=== PATIENT | female | born 1960 | race Caucasian/White ===

== ENCOUNTER → 2017-07-06 | Outpatient (CLI) | payer OTHER ==
[~2017-07-06] MED LIST: AMLO10 PO; ATEN25; CHOL10002 PO; CYCL10 PO; HYDCHL25 PO; INSULANPEN SC; KETO10 PO; LOSA50 PO; Lipitor20 MG PO; METF500C PO; MORP30 PO; MORP30ER PO; Oxycodone HCl20 M1 PO; POTCHL20ER PO; PREG75 PO; Prednisone20 MG PO; ROPI2 PO; SERT100 PO; Valium5 MG PO
[2017-07-06 16:38] LABS: BASOPHILS ABSOLUTE AUTO 0.09 K/mm3 (0.00-0.23); BASOPHILS PERCENT AUTO 1 % (0-2); EOSINOPHILS ABSOLUTE AUTO 0.15 K/mm3 (0.00-0.68); EOSINOPHILS PERCENT AUTO 2 % (0-6); Hematocrit 43.1 % (33.0-51.0); Hemoglobin 15.6 g/dL (11.5-16.0); IMMATURE GRAN ABSOLUTE AUTO 0.02 K/mm3 (0.00-0.10); IMMATURE GRAN PERCENT AUTO 0 % (0-1); LYMPHOCYTES ABSOLUTE AUTO 2.15 K/mm3 (0.84-5.20); LYMPHOCYTES PERCENT AUTO 32 % (21-46); MONOCYTES ABSOLUTE AUTO 0.39 K/mm3 (0.16-1.47); MONOCYTES PERCENT AUTO 6 % (4-13); Mean Corpuscular HGB 30.9 pg (26.0-34.0); Mean Corpuscular HGB Conc 36.2 g/dL (31.5-36.5); Mean Corpuscular Volume 85 fL (80-100); Mean Platelet Volume 11.2 fL (9.1-12.4); NEUTROPHILS ABSOLUTE AUTO 3.98 K/mm3 (1.96-9.15); NEUTROPHILS PERCENT AUTO 59 % (41-73); Platelet Count 164 K/mm3 (150-400); RDW Coefficient Variation 13.2 % (11.7-14.2); RDW Standard Deviation 40.1 fL (35.1-46.3); Red Blood Cell Count 5.05 M/mm3 (3.80-5.20); White Blood Cell Count 6.78 K/mm3 (4.00-11.30)
[2017-07-06 17:02] LABS: Bun/Creatinine Ratio 13.9 (12.0-20.0); Calcium, Blood 10.8 mg/dL (8.5-10.1); Creatinine, Blood 1.22 mg/dL (0.40-1.00); Potassium, Blood 3.4 mmol/L (3.5-5.5)
== END ==
LOC: LAB EV 16:30
PROVIDERS: Family Medicine
DX: R73.9 Hyperglycemia, unspecified (principal)
CPT/HCPCS: 80048; 83036; 85025

== ENCOUNTER 2017-09-18 13:55 | Emergency (ER) | payer OTHER ==
[~2017-09-18] VITALS: Ht 165.1 cm; Wt 131.5 kg
[~2017-09-18 13:55] MED LIST changes: -INSULANPEN SC; -KETO10 PO; -LOSA50 PO; -Lipitor20 MG PO; -METF500C PO
[2017-09-18] MEDS ORDERED: Lipitor20 MG PO (14:51)
[2017-09-18] MEDS ORDERED: LOSA50 PO (14:53)
[2017-09-18] MEDS ORDERED: METF500C PO (14:53)
[2017-09-18] MEDS ORDERED: INSULANPEN SC (14:55)
[2017-09-18] MEDS ORDERED: SERT100 PO (14:56)
[2017-09-18 14:58] LABS: BASOPHILS ABSOLUTE AUTO 0.06 K/mm3 (0.00-0.23); BASOPHILS PERCENT AUTO 1 % (0-2); EOSINOPHILS ABSOLUTE AUTO 0.27 K/mm3 (0.00-0.68); EOSINOPHILS PERCENT AUTO 5 % (0-6); Hematocrit 37.5 % (33.0-51.0); Hemoglobin 12.4 g/dL (11.5-16.0); IMMATURE GRAN ABSOLUTE AUTO 0.01 K/mm3 (0.00-0.10); IMMATURE GRAN PERCENT AUTO 0 % (0-1); LYMPHOCYTES ABSOLUTE AUTO 1.65 K/mm3 (0.84-5.20); LYMPHOCYTES PERCENT AUTO 28 % (21-46); MONOCYTES ABSOLUTE AUTO 0.31 K/mm3 (0.16-1.47); MONOCYTES PERCENT AUTO 5 % (4-13); Mean Corpuscular HGB 31.1 pg (26.0-34.0); Mean Corpuscular HGB Conc 33.1 g/dL (31.5-36.5); Mean Corpuscular Volume 94 fL (80-100); NEUTROPHILS ABSOLUTE AUTO 3.71 K/mm3 (1.96-9.15); NEUTROPHILS PERCENT AUTO 62 % (41-73); Platelet Count 136 K/mm3 (150-400); RDW Coefficient Variation 13.4 % (11.7-14.2); RDW Standard Deviation 46.2 fL (35.1-46.3); Red Blood Cell Count 3.99 M/mm3 (3.80-5.20); White Blood Cell Count 6.01 K/mm3 (4.00-11.30)
[2017-09-18 15:12] LABS: Alanine Aminotransfer (ALT/SGP 40 U/L (12-78); Albumin/Globulin Ratio 1.1 (0.8-1.8); Alk Phos 81 U/L (50-136); Anion Gap 8 mmol/L (6-16); Aspartate Aminotrans (AST/SGOT 30 U/L (12-37); Bilirubin, Total 0.6 mg/dL (0.1-1.0); Blood Urea Nitrogen 19 mg/dL (8-24); Bun/Creatinine Ratio 31.6 (12.0-20.0); CO2, Blood 31 mmol/L (21-32); CPK Creatine Kinase 126 U/L (26-193); Calcium, Blood 10.4 mg/dL (8.5-10.1); Chloride, Blood 100 mmol/L (98-108); Globulin, Blood 3.8 g/dL (2.2-4.0); Glomerular Filtration Rate >60 (60-); Glucose, Blood 101 mg/dL (70-99); Potassium, Blood 3.6 mmol/L (3.5-5.5); Sodium, Blood 139 mmol/L (136-145); Total Protein, Blood 7.8 g/dL (6.4-8.2)
[2017-09-18] MEDS ORDERED: KETO10 PO ×2 (15:57→16:10)
== END 2017-09-18 16:10 | disposition home or self-care (01) ==
LOC: ER 13:55
PROVIDERS: Physician Assistant
DX: R52 Pain, unspecified (principal); E11.9 Type 2 diabetes mellitus without complications; Z88.2 Allergy status to sulfonamides; Z88.8 Allergy status to other drugs, medicaments and biological substances; Z79.899 Other long term (current) drug therapy; Z87.891 Personal history of nicotine dependence; Z79.4 Long term (current) use of insulin
CPT/HCPCS: 36415; 80053; 82550; 83880; 85025; 96374; 99283; J1885

== ENCOUNTER 2018-08-31 11:23 | Emergency (ER) | payer OTHER ==
[~2018-08-31] VITALS: Ht 167.6 cm; Wt 133.8 kg
[~2018-08-31 11:23] MED LIST changes: +INSULANPEN SC; +KETO10 PO; +LOSA50 PO; +Lipitor20 MG PO; +METF500C PO
[2018-08-31] MEDS ORDERED: Vibramycin100 MG PO (11:51)
== END 2018-08-31 12:19 | disposition home or self-care (01) ==
LOC: ER 11:23
DX: N61.0 Mastitis without abscess (principal); M54.9 Dorsalgia, unspecified; G89.29 Other chronic pain; Z88.2 Allergy status to sulfonamides; Z88.8 Allergy status to other drugs, medicaments and biological substances; Z79.899 Other long term (current) drug therapy; Z87.891 Personal history of nicotine dependence
CPT/HCPCS: 99282

== ENCOUNTER → 2018-11-14 | Outpatient (CLI) | payer OTHER ==
[~2018-11-14] MED LIST changes: +Vibramycin100 MG PO
[2018-11-14 10:47] LABS: BASOPHILS ABSOLUTE AUTO 0.05 K/mm3 (0.00-0.23); BASOPHILS PERCENT AUTO 1 % (0-2); EOSINOPHILS ABSOLUTE AUTO 0.13 K/mm3 (0.00-0.68); EOSINOPHILS PERCENT AUTO 3 % (0-6); Hematocrit 37.8 % (33.0-51.0); Hemoglobin 13.3 g/dL (11.5-16.0); IMMATURE GRAN ABSOLUTE AUTO 0.03 K/mm3 (0.00-0.10); IMMATURE GRAN PERCENT AUTO 1 % (0-1); LYMPHOCYTES ABSOLUTE AUTO 1.56 K/mm3 (0.84-5.20); LYMPHOCYTES PERCENT AUTO 31 % (21-46); MONOCYTES ABSOLUTE AUTO 0.22 K/mm3 (0.16-1.47); MONOCYTES PERCENT AUTO 4 % (4-13); Mean Corpuscular HGB 32.2 pg (26.0-34.0); Mean Corpuscular HGB Conc 35.2 g/dL (31.5-36.5); Mean Corpuscular Volume 92 fL (80-100); NEUTROPHILS ABSOLUTE AUTO 3.08 K/mm3 (1.96-9.15); NEUTROPHILS PERCENT AUTO 61 % (41-73); RDW Coefficient Variation 13.2 % (11.7-14.2); RDW Standard Deviation 43.9 fL (35.1-46.3); Red Blood Cell Count 4.13 M/mm3 (3.80-5.20); White Blood Cell Count 5.07 K/mm3 (4.00-11.30)
[2018-11-14 10:48] LABS: Platelet Count 136 K/mm3 (150-400)
[2018-11-14 10:51] LABS: Alanine Aminotransfer (ALT/SGP 54 U/L (12-78); Albumin, Blood 4.1 g/dL (3.4-5.0); Albumin/Globulin Ratio 1.2 (0.8-1.8); Alk Phos 78 U/L (40-126); Anion Gap 12 mmol/L (6-16); Aspartate Aminotrans (AST/SGOT 35 U/L (12-37); Bilirubin, Total 0.5 mg/dL (0.1-1.0); Blood Urea Nitrogen 18 mg/dL (8-24); Bun/Creatinine Ratio 26.1 (12.0-20.0); CO2, Blood 23 mmol/L (21-32); Calcium, Blood 10.6 mg/dL (8.5-10.1); Chloride, Blood 103 mmol/L (98-108); Creatinine, Blood 0.69 mg/dL (0.40-1.00); Globulin, Blood 3.4 g/dL (2.2-4.0); Glomerular Filtration Rate >60 (60-); Glucose, Blood 106 mg/dL (70-99); Potassium, Blood 4.1 mmol/L (3.5-5.5); Sodium, Blood 138 mmol/L (136-145); Total Protein, Blood 7.5 g/dL (6.4-8.2)
== END | disposition home or self-care (01) ==
LOC: LAB EV 10:34 → LAB SHORT 10:34
PROVIDERS: Physician Assistant
DX: R06.01 Orthopnea (principal)
CPT/HCPCS: 80053; 83880; 85025

== ENCOUNTER → 2018-12-13 | Outpatient (CLI) | payer OTHER | END | disposition home or self-care (01) | LOC: LAB SHORT 13:10 → LAB EV 13:10 | DX: L02.219 Cutaneous abscess of trunk, unspecified (principal) | CPT/HCPCS: 87070; 87075; 87077; 87147; 87186; 87205 ==

== ENCOUNTER 2020-06-05 08:34 | Day surgery (SDC) | payer OTHER, SELFPAY ==
[~2020-06-05] VITALS: Ht 165.1 cm; Wt 134.8 kg
[2020-06-05] MEDS ORDERED: MONT10T PO (09:24)
[2020-06-05] MEDS ORDERED: CYCL10 PO (09:25)
[2020-06-05] MEDS ORDERED: OMEP20ER PO (09:26)
[2020-06-05] MEDS ORDERED: Aspir 8181 MG PO (09:26)
--- NOTE | 2020-06-05 09:51 | NUR ---
06/05/20 0951 Lito Landrum BUPIVACAINE 0.5% 30 MLS MIXED WITH 0.15 ML EPI PER ORDER TO MAKE A CONCENTRATION OF BUPIVACAINE 0.5% 1:200,000 FOR INJECTION AT [facility] BY DR. WARREN. 30 MLS BUPIVACAINE 0.5% 1:200,[address] WARREN AT [facility]
--- NOTE | 2020-06-05 12:40 | NUR ---
06/05/20 1240 CHRISTIAN BURGOS PATIENTS OXYGEN SATURATION CONTINUES TO OCCASIONALLY DROP TO 85-87%, PATIENT CONTINUES TO DEEP BREATH, EDUCATION ABOUT DEEP BREATHING ALSO REENFORCED, LUNG SOUNDS ARE CLEAR, AFTER A COUPLE DEEP BREATHS PATIENTS OXYGEN SATURATION INCREASES TO 97% ON RA, AT BASELINE PATIENT IS A SHALLOW BREATHER AND REPORTS NOT TAKING HER SINGULAIR THIS AM, PATIENT HAS ASTHMA BUT REPORTS ONLY USING HER INHALER A COUPLE TIMES A YEAR, PATIENT DENIES SYMPTOMS OF HYPOXIA, DR. MARIN NOTIFIED AND ORDERS OBTAINED TO SEND PATIENT HOME WITH INSENTIVE SPIROMETER, PATIENT REPORTS HAVING AN INSENTIVE SPIROMETER AT HOME AND IS ABLE TO VERBALIZE HOW TO USE THE DEVICE
== END 2020-06-05 12:41 | disposition home or self-care (01) ==
LOC: ORSCSDS 08:34
PROVIDERS: Podiatrist Foot & Ankle Surgery
PROC: 0QBM0ZZ Excision of Left Tarsal, Open Approach (ICD-10-PCS; principal; 2020-06-05 09:45)
PROC: 0LQP0ZZ Repair Left Lower Leg Tendon, Open Approach (ICD-10-PCS; principal; 2020-06-05 09:45)
PROC: 0LSP0ZZ Reposition Left Lower Leg Tendon, Open Approach (ICD-10-PCS; principal; 2020-06-05 09:45)
DX: M24.572 Contracture, left ankle (principal); M65.28 Calcific tendinitis, other site; J45.909 Unspecified asthma, uncomplicated; M79.7 Fibromyalgia; Z79.899 Other long term (current) drug therapy; Z87.891 Personal history of nicotine dependence
CPT/HCPCS: 82947; A9270; C1713; J0171; J0690; J1100; J1885; J2250; J2405; J2704; J2710; J3010; J7120

== ENCOUNTER 2020-08-29 07:14 | Observation (INO) | payer OTHER ==
[~2020-08-29] VITALS: Ht 165.1 cm; Wt 135.6 kg
[~2020-08-29 07:14] MED LIST changes: +Aspir 8181 MG PO; +MONT10T PO; +OMEP20ER PO
[2020-08-29 07:56] LABS: Source, Urine Clean Catch
[2020-08-29 08:03] LABS: Appearance, Urine Cloudy (Clear); Bilirubin, Urine Neg (Neg); Blood, Urine 1+ (Neg); Color, Urine Yellow (P-Yellow); Glucose Qualitative, Urine Neg (Neg); Ketones, Urine Neg (Neg); Leukocyte Esterase, Urine 3+ (Neg); Nitrite, Urine Neg (Neg); Protein, Urine 2+ (Neg); Urobilinogen, Urine NORM (Normal)
[2020-08-29 08:04] LABS: BASOPHILS ABSOLUTE AUTO 0.04 K/mm3 (0.00-0.23); BASOPHILS PERCENT AUTO 1 % (0-2); EOSINOPHILS ABSOLUTE AUTO 0.22 K/mm3 (0.00-0.68); EOSINOPHILS PERCENT AUTO 5 % (0-6); Hematocrit 27.6 % (33.0-51.0); Hemoglobin 8.7 g/dL (11.5-16.0); IMMATURE GRAN ABSOLUTE AUTO 0.01 K/mm3 (0.00-0.10); IMMATURE GRAN PERCENT AUTO 0 % (0-1); LYMPHOCYTES ABSOLUTE AUTO 1.02 K/mm3 (0.84-5.20); LYMPHOCYTES PERCENT AUTO 25 % (21-46); MONOCYTES ABSOLUTE AUTO 0.25 K/mm3 (0.16-1.47); MONOCYTES PERCENT AUTO 6 % (4-13); Mean Corpuscular HGB 27.2 pg (26.0-34.0); Mean Corpuscular HGB Conc 31.5 g/dL (31.5-36.5); Mean Corpuscular Volume 86 fL (80-100); Mean Platelet Volume 10.8 fL (9.1-12.4); NEUTROPHILS ABSOLUTE AUTO 2.58 K/mm3 (1.96-9.15); NEUTROPHILS PERCENT AUTO 63 % (41-73); Platelet Count 116 K/mm3 (150-400); RDW Coefficient Variation 15.8 % (11.7-14.2); RDW Standard Deviation 49.7 fL (35.1-46.3); White Blood Cell Count 4.12 K/mm3 (4.00-11.30)
[2020-08-29 08:10] LABS: Specific Gravity, Urine 1.015 (1.003-1.022)
[2020-08-29 08:12] LABS: White Blood Cells, Urine 25-50 /hpf (0-5)
[2020-08-29 08:13] LABS: Bacteria Mod /hpf; Red Blood Cells, Urine 0-2 /hpf (0-2); Squamous Epithelial Cells Mod /hpf (Few)
[2020-08-29 08:14] LABS: Mucus Light (0-Heavy); Renal Epithelial Few /hpf (0-Rare)
[2020-08-29 08:20] LABS: Alanine Aminotransfer (ALT/SGP 61 U/L (12-78); Alk Phos 160 U/L (50-136); Anion Gap 10 mmol/L (6-16); Aspartate Aminotrans (AST/SGOT 92 U/L (12-37); Bilirubin, Total 0.9 mg/dL (0.1-1.0); Blood Urea Nitrogen 11 mg/dL (8-24); Bun/Creatinine Ratio 15.7 (12.0-20.0); CO2, Blood 28 mmol/L (21-32); Calcium, Blood 9.7 mg/dL (8.5-10.1); Chloride, Blood 90 mmol/L (98-108); Globulin, Blood 3.9 g/dL (2.2-4.0); Glomerular Filtration Rate >60 (60-); Glucose, Blood 132 mg/dL (70-99); Potassium, Blood 2.8 mmol/L (3.5-5.5); Sodium, Blood 128 mmol/L (136-145); Total Protein, Blood 7.9 g/dL (6.4-8.2); Troponin I <0.015 ng/mL (0.000-0.040)
[2020-08-29 14:19] LABS: Hematocrit 25.8 % (33.0-51.0)
--- NOTE | 2020-08-29 18:22 | NUR ---
SHIFT SUMMARY 11:50 RECEIVED PT TO RM 326 VIA GURNEY FROM ER. PT ADMITTED FOR DIZZINESS. RECEIVED REPORT FROM KALEIGH [facility]. PT BROUGHT IN BY SPOUSE FOR FREQUENT FALLS AT HOME WITH BRUISING TO L FLANK AND BACK WELL L ARM. A&O, SBA TO BTM D/T FALL PRECAUTIONS. MORBIDLY [facility]. PT REPORTS DIET CONTROLED. PT TAKEN DOWN TO IMAGING FOR MRI, BUT UNABLE TO FIT IN MACHINE. VISITOR TO THIS AFTERNOON. DR CHURCHILL HERE TO SEE PT. NEW ORDERS PLACED. NO C/O. CALL LT IN REACH.
--- NOTE | 2020-08-30 04:36 | NUR ---
SHIFT SUMMARY PATIENT ALERT AND ORIENTED. WAS MEDICATED PER EMAR FOR HEADACHE. PATIENT COMPLAINED OF BACK PAIN. EGG CRATE PLACED ON BED AND HEATING PAD APPLIED. PATIENT REPORTED GREAT IMPROVEMENT IN HER PAIN. NO ACUTE ISSUES NOTED OVERNIGHT. NO COMPLAINTS OF DIZZINESS. IV PATENT AND FLUSHED. BED IN LOWEST POSITION WITH WHEELS LOCKED AND ALARM ON. CALL LIGHT WITHIN REACH. REPORT GIVEN TO ONCPETER [facility].
[2020-08-30 05:14] LABS: BASOPHILS ABSOLUTE AUTO 0.05 K/mm3 (0.00-0.23); BASOPHILS PERCENT AUTO 1 % (0-2); EOSINOPHILS ABSOLUTE AUTO 0.23 K/mm3 (0.00-0.68); EOSINOPHILS PERCENT AUTO 6 % (0-6); Hematocrit 27.6 % (33.0-51.0); Hemoglobin 8.5 g/dL (11.5-16.0); IMMATURE GRAN ABSOLUTE AUTO 0.01 K/mm3 (0.00-0.10); IMMATURE GRAN PERCENT AUTO 0 % (0-1); LYMPHOCYTES PERCENT AUTO 34 % (21-46); MONOCYTES ABSOLUTE AUTO 0.29 K/mm3 (0.16-1.47); MONOCYTES PERCENT AUTO 7 % (4-13); Mean Corpuscular HGB 27.2 pg (26.0-34.0); Mean Corpuscular HGB Conc 30.8 g/dL (31.5-36.5); Mean Corpuscular Volume 88 fL (80-100); Mean Platelet Volume 11.2 fL (9.1-12.4); NEUTROPHILS PERCENT AUTO 53 % (41-73); Platelet Count 119 K/mm3 (150-400); RDW Coefficient Variation 15.9 % (11.7-14.2); RDW Standard Deviation 51.2 fL (35.1-46.3); Red Blood Cell Count 3.13 M/mm3 (3.80-5.20); White Blood Cell Count 4.18 K/mm3 (4.00-11.30)
[2020-08-30 05:28] LABS: Anion Gap 5 mmol/L (6-16); Blood Urea Nitrogen 12 mg/dL (8-24); Bun/Creatinine Ratio 17.6 (12.0-20.0); CO2, Blood 31 mmol/L (21-32); Calcium, Blood 9.6 mg/dL (8.5-10.1); Chloride, Blood 98 mmol/L (98-108); Creatinine, Blood 0.68 mg/dL (0.40-1.00); Glomerular Filtration Rate >60 (60-); Glucose, Blood 116 mg/dL (70-99); Potassium, Blood 3.4 mmol/L (3.5-5.5); Sodium, Blood 134 mmol/L (136-145)
--- NOTE | 2020-08-30 10:40 | NUR ---
ECHOCARDIOGRAM COMPLETED
[2020-08-30 12:43] LABS: Percent Saturation 5.7 % (15.0-50.0)
--- NOTE | 2020-08-30 16:32 | NUR ---
SHIFT SUMMARY PT IS A&O, PLEASANT AND CO-OP. SBA ONLY TO BTHRM D/T HX OF FALLS. PT REPORTS FEELING SO MUCH BETTER. PT THINKING LOW K+ LEVEL CAUSE OF RECENT FALLS. DR CHURCHILL HERE TO SEE PT AND DISCUSSED PLAN OF CARE. ECHO TO BE DONE AND REVIEWED AND THEN PT CAN D/C TO HOME. ECHO WNL'S; SEE CHART. PT CLEAR TO GO HOME. PT'S SPOUSE NOTIFIED OF D/C. PT ASSISTED OUT TO CAR VIA W/C. PT VERY GRATEFUL FOR CARE. NO C/O. D/C INSTRUCTIONS REVIEWED WITH PT; VERBALIZED UNDERSTANDING.
== END 2020-08-30 15:21 | disposition home or self-care (01) ==
LOC: ER 07:14 → MEDS 07:15
PROVIDERS: Emergency Medicine; ADMIT Family Medicine
DX: R42 Dizziness and giddiness (principal); R29.6 Repeated falls; E23.6 Other disorders of pituitary gland; I10 Essential (primary) hypertension; D50.9 Iron deficiency anemia, unspecified; E11.9 Type 2 diabetes mellitus without complications; E87.6 Hypokalemia; E87.1 Hypo-osmolality and hyponatremia; K64.9 Unspecified hemorrhoids; E78.5 Hyperlipidemia, unspecified; J45.909 Unspecified asthma, uncomplicated; E66.01 Morbid (severe) obesity due to excess calories; Z68.42 Body mass index [BMI] 45.0-49.9, adult; Z87.891 Personal history of nicotine dependence; Z79.82 Long term (current) use of aspirin; Z88.2 Allergy status to sulfonamides; Z88.8 Allergy status to other drugs, medicaments and biological substances
CPT/HCPCS: 36415; 70450; 71046; 72040; 80048; 80053; 81001; 82024; 82533; 82728; 82947; 83540; 83550; 83735; 83880; 84443; 84484; 85014; 85018; 85025; 86850; 86900; 86901; 87086; 93005; 93010; 93306; 96365; 96366; 96375; 97161; 97530; 99285-25; A9270; C9113; G0378; J1650; J3480; J7030

== ENCOUNTER 2024-01-08 08:19 | Emergency (ER) | payer MEDICARE ==
[~2024-01-08] VITALS: Ht 167.6 cm; Wt 113.4 kg
[2024-01-08] MEDS ORDERED: NS 1,000 ML IV SCH (08:50)
[2024-01-08] MEDS ORDERED: Ondansetron HCl 2 MG / ML 2ML Vial IV ONE (08:50)
[2024-01-08] MEDS ORDERED: Famotidine 10 MG/ML 2ML Vial IV ONE (09:00)
[2024-01-08 09:14] LABS: BASOPHILS ABSOLUTE AUTO 0.05 K/mm3 (0.00-0.23); BASOPHILS PERCENT AUTO 1 % (0-2); EOSINOPHILS ABSOLUTE AUTO 0.09 K/mm3 (0.00-0.68); EOSINOPHILS PERCENT AUTO 2 % (0-6); Hematocrit 32.8 % (33.0-51.0); Hemoglobin 10.7 g/dL (11.5-16.0); IMMATURE GRAN ABSOLUTE AUTO 0.05 K/mm3 (0.00-0.10); IMMATURE GRAN PERCENT AUTO 1 % (0-1); LYMPHOCYTES ABSOLUTE AUTO 0.92 K/mm3 (0.84-5.20); LYMPHOCYTES PERCENT AUTO 16 % (21-46); MONOCYTES ABSOLUTE AUTO 0.35 K/mm3 (0.16-1.47); MONOCYTES PERCENT AUTO 6 % (4-13); Mean Corpuscular HGB 33.2 pg (26.0-34.0); Mean Corpuscular HGB Conc 32.6 g/dL (31.5-36.5); Mean Corpuscular Volume 102 fL (80-100); NEUTROPHILS ABSOLUTE AUTO 4.16 K/mm3 (1.96-9.15); NEUTROPHILS PERCENT AUTO 74 % (41-73); Platelet Count 68 K/mm3 (150-400); RDW Coefficient Variation 16.8 % (11.7-14.2); RDW Standard Deviation 63.5 fL (35.1-46.3); Red Blood Cell Count 3.22 M/mm3 (3.80-5.20); White Blood Cell Count 5.62 K/mm3 (4.00-11.30)
[2024-01-08 09:19] LABS: Albumin, Blood 2.9 g/dL (3.4-5.0); Albumin/Globulin Ratio 0.7 (0.8-1.8); Bilirubin, Direct 3.2 mg/dL (0.0-0.3); Bilirubin, Indirect 2.9 mg/dL (0.1-0.7); Bilirubin, Total 6.1 mg/dL (0.1-1.0); Bun/Creatinine Ratio 25.3 (12.0-20.0); Calcium, Blood 9.3 mg/dL (8.5-10.1); Creatinine, Blood 0.59 mg/dL (0.40-1.00); Globulin, Blood 4.2 g/dL (2.2-4.0); Potassium, Blood 3.9 mmol/L (3.5-5.5); Total Protein, Blood 7.1 g/dL (6.4-8.2)
[2024-01-08] MEDS ORDERED: Metoclopramide HCl 5MG / ML 2ML Vial IV ONE ×2 (10:00→12:50)
[2024-01-08] MEDS ORDERED: Piperacillin/Tazobactam Sod 3.375 GM in NS 100 ML IV ONE (10:15)
[2024-01-08] MEDS ORDERED: Pantoprazole Sodium 40 MG Injection IV ONE ×2 (10:20→10:40)
[2024-01-08] MEDS ORDERED: CefTRIAXone Sodium 2,000 MG in NS 100 ML IV ONE (10:40)
[2024-01-08] MEDS ORDERED: Pantoprazole Sodium 40 MG in NS 50 ML IV SCH (10:40)
[2024-01-08] MEDS ORDERED: Octreotide Acetate 50 MCG in NS 50 ML IV ONE (10:40)
[2024-01-08] MEDS ORDERED: Octreotide Acetate 500 MCG in NS 250 ML IV SCH (10:40)
[2024-01-08 15:00] VITALS: BP 156/98
== END 2024-01-08 15:30 | disposition short-term general hospital (02) ==
LOC: ER 08:19
PROVIDERS: Student in an Organized Health Care Education/Training Program
DX: K92.2 Gastrointestinal hemorrhage, unspecified (principal); K74.60 Unspecified cirrhosis of liver; I85.10 Secondary esophageal varices without bleeding; I10 Essential (primary) hypertension; E11.9 Type 2 diabetes mellitus without complications; Z88.2 Allergy status to sulfonamides; Z88.8 Allergy status to other drugs, medicaments and biological substances; Z79.899 Other long term (current) drug therapy; Z79.82 Long term (current) use of aspirin; Z87.891 Personal history of nicotine dependence
CPT/HCPCS: 74177; 80048; 80076; 83690; 85025; 93005; 93010; 96361; 96365-59; 96366; 96367; 96368; 96375; 96376; 99285-25; J0696; J2354; J2405; J2470; J2543; J2765; J7030; J7050; Q9967

== ENCOUNTER 2024-01-12 13:40 | Emergency (ER) | payer MEDICARE ==
[~2024-01-12] VITALS: Ht 165.1 cm; Wt 104.3 kg
[2024-01-12 15:15] LABS: BASOPHILS ABSOLUTE AUTO 0.06 K/mm3 (0.00-0.23); BASOPHILS PERCENT AUTO 1 % (0-2); EOSINOPHILS ABSOLUTE AUTO 0.28 K/mm3 (0.00-0.68); EOSINOPHILS PERCENT AUTO 6 % (0-6); Hematocrit 30.7 % (33.0-51.0); Hemoglobin 9.7 g/dL (11.5-16.0); IMMATURE GRAN ABSOLUTE AUTO 0.02 K/mm3 (0.00-0.10); IMMATURE GRAN PERCENT AUTO 0 % (0-1); LYMPHOCYTES ABSOLUTE AUTO 1.16 K/mm3 (0.84-5.20); LYMPHOCYTES PERCENT AUTO 25 % (21-46); MONOCYTES ABSOLUTE AUTO 0.29 K/mm3 (0.16-1.47); MONOCYTES PERCENT AUTO 6 % (4-13); Mean Corpuscular HGB Conc 31.6 g/dL (31.5-36.5); Mean Corpuscular Volume 104 fL (80-100); Mean Platelet Volume 10.5 fL (9.1-12.4); NEUTROPHILS ABSOLUTE AUTO 2.76 K/mm3 (1.96-9.15); NEUTROPHILS PERCENT AUTO 61 % (41-73); Platelet Count 63 K/mm3 (150-400); RDW Coefficient Variation 17.7 % (11.7-14.2); Red Blood Cell Count 2.94 M/mm3 (3.80-5.20); White Blood Cell Count 4.57 K/mm3 (4.00-11.30)
[2024-01-12 15:39] LABS: Albumin, Blood 2.8 g/dL (3.4-5.0); Albumin/Globulin Ratio 0.7 (0.8-1.8); Bilirubin, Total 2.9 mg/dL (0.1-1.0); Bun/Creatinine Ratio 13.9 (12.0-20.0); Calcium, Blood 8.2 mg/dL (8.5-10.1); Creatinine, Blood 0.65 mg/dL (0.40-1.00); Globulin, Blood 3.9 g/dL (2.2-4.0); Potassium, Blood 3.4 mmol/L (3.5-5.5); Total Protein, Blood 6.7 g/dL (6.4-8.2)
[2024-01-12] MEDS ORDERED: FOLI1 PO (15:51)
[2024-01-12] MEDS ORDERED: LIDO700A20 TOP (16:49)
[2024-01-12 16:55] VITALS: BP 129/77
== END 2024-01-12 17:02 | disposition home or self-care (01) ==
LOC: ER 13:40
PROVIDERS: Physician Assistant
DX: M25.472 Effusion, left ankle (principal); M25.471 Effusion, right ankle; I11.0 Hypertensive heart disease with heart failure; I50.30 Unspecified diastolic (congestive) heart failure; K21.9 Gastro-esophageal reflux disease without esophagitis; E11.9 Type 2 diabetes mellitus without complications; E78.5 Hyperlipidemia, unspecified; Z87.891 Personal history of nicotine dependence; Z79.899 Other long term (current) drug therapy; Z88.2 Allergy status to sulfonamides; Z88.8 Allergy status to other drugs, medicaments and biological substances
CPT/HCPCS: 71046; 80053; 83880; 85025; 93005; 93010; 99284-25

== ENCOUNTER → 2024-01-25 | Outpatient (CLI) | payer MEDICARE ==
[~2024-01-25] MED LIST changes: +FOLI1 PO; +LIDO700A20 TOP
[2024-01-25 16:19] LABS: BASOPHILS ABSOLUTE AUTO 0.09 K/mm3 (0.00-0.23); BASOPHILS PERCENT AUTO 2 % (0-2); EOSINOPHILS ABSOLUTE AUTO 0.34 K/mm3 (0.00-0.68); EOSINOPHILS PERCENT AUTO 6 % (0-6); Hematocrit 31.4 % (33.0-51.0); Hemoglobin 10.5 g/dL (11.5-16.0); IMMATURE GRAN ABSOLUTE AUTO 0.01 K/mm3 (0.00-0.10); IMMATURE GRAN PERCENT AUTO 0 % (0-1); LYMPHOCYTES ABSOLUTE AUTO 1.48 K/mm3 (0.84-5.20); LYMPHOCYTES PERCENT AUTO 26 % (21-46); MONOCYTES ABSOLUTE AUTO 0.36 K/mm3 (0.16-1.47); MONOCYTES PERCENT AUTO 6 % (4-13); Mean Corpuscular HGB 32.6 pg (26.0-34.0); Mean Corpuscular HGB Conc 33.4 g/dL (31.5-36.5); Mean Corpuscular Volume 98 fL (80-100); Mean Platelet Volume 10.7 fL (9.1-12.4); NEUTROPHILS ABSOLUTE AUTO 3.45 K/mm3 (1.96-9.15); NEUTROPHILS PERCENT AUTO 60 % (41-73); Platelet Count 89 K/mm3 (150-400); RDW Coefficient Variation 15.3 % (11.7-14.2); RDW Standard Deviation 54.8 fL (35.1-46.3); Red Blood Cell Count 3.22 M/mm3 (3.80-5.20); White Blood Cell Count 5.73 K/mm3 (4.00-11.30)
== END ==
LOC: LAB 16:14 → LAB SHORT 16:14
PROVIDERS: Family Medicine
DX: N39.0 Urinary tract infection, site not specified (principal); R53.1 Weakness
CPT/HCPCS: 85025; 87086

== ENCOUNTER 2024-10-24 16:43 | Inpatient (IN) | payer MEDICARE ==
[~2024-10-24] VITALS: Ht 170.2 cm; Wt 122.1 kg
[2024-10-24 17:42] VITALS: BP 120/61
[2024-10-24] MEDS ORDERED: ALBU90OI INH (17:42)
[2024-10-24] MEDS ORDERED: CYCL10 PO (17:43)
[2024-10-24] MEDS ORDERED: FEROSUL325 M1 PO (17:45)
[2024-10-24] MEDS ORDERED: LOSA25 PO (17:47)
[2024-10-24] MEDS ORDERED: LACT10SY (17:47)
[2024-10-24] MEDS ORDERED: MOXIOPS LEFTEYE (17:48)
[2024-10-24] MEDS ORDERED: MONT10T (17:48)
[2024-10-24] MEDS ORDERED: POTA10T PO (17:49)
[2024-10-24] MEDS ORDERED: Pulmicort Fle180 MCG (17:49)
[2024-10-24] MEDS ORDERED: SERT100 PO (17:50)
[2024-10-24] MEDS ORDERED: VIT D3-VIT K21 EACH (17:51)
--- NOTE | 2024-10-24 18:35 | NUR ---
PATIENT TO ROOM VIA WHEELCHAIR WITH SPOUSE AT SIDE. ORIENTED TO ROOM, CALL LIGHT, BATHROOM AND WHEN TO CALL FOR ASSISTANCE. PATIENT ANSWERED QUESTIONS APPROPRIATLEY. EXPLAINED ADMISSION PROCESS AND ANSWERED ANY QUESTIONS. SPOUSE VERBALIZED CONCERN ABOUT THE LEG AND HEAD MOVEMENTS THIS IS NEW. CALL PLACED TO [facility] PROVIDER AT 1730. MD MADRID WILL BE ROUNDING ON PATIENT. CALL LIGHT WITHIN REACH
[2024-10-24 19:49] LABS: BASOPHILS ABSOLUTE AUTO 0.06 K/mm3 (0.00-0.23); BASOPHILS PERCENT AUTO 1 % (0-2); EOSINOPHILS ABSOLUTE AUTO 0.19 K/mm3 (0.00-0.68); EOSINOPHILS PERCENT AUTO 4 % (0-6); Hematocrit 31.7 % (33.0-51.0); Hemoglobin 10.6 g/dL (11.5-16.0); IMMATURE GRAN ABSOLUTE AUTO 0.01 K/mm3 (0.00-0.10); IMMATURE GRAN PERCENT AUTO 0 % (0-1); LYMPHOCYTES ABSOLUTE AUTO 1.58 K/mm3 (0.84-5.20); LYMPHOCYTES PERCENT AUTO 37 % (21-46); MONOCYTES ABSOLUTE AUTO 0.25 K/mm3 (0.16-1.47); MONOCYTES PERCENT AUTO 6 % (4-13); Mean Corpuscular HGB Conc 33.4 g/dL (31.5-36.5); Mean Corpuscular Volume 96 fL (80-100); NEUTROPHILS ABSOLUTE AUTO 2.19 K/mm3 (1.96-9.15); NEUTROPHILS PERCENT AUTO 51 % (41-73); NRBC ABSOLUTE 0.00 K/mm3 (0.00-0.02); NRBC Auto 0.0 /100 WBC (0.0-0.2); Platelet Count 66 K/mm3 (150-400); RDW Coefficient Variation 15.8 % (11.7-14.2); RDW Standard Deviation 56.1 fL (35.1-46.3)
[2024-10-24 19:53] VITALS: BP 120/55
[2024-10-24 20:00] LABS: Prothrombin Time Results 13.3 Sec (9.7-11.5)
[2024-10-24 20:05] LABS: Alanine Aminotransfer (ALT/SGP 30.0 U/L (12-78); Albumin, Blood 3.1 g/dL (3.4-5.0); Albumin/Globulin Ratio 0.9 (0.8-1.8); Anion Gap 9.0 mmol/L (3-11); Aspartate Aminotrans (AST/SGOT 53.0 U/L (12-37); Bilirubin, Total 1.8 mg/dL (0.1-1.0); Blood Urea Nitrogen 8.0 mg/dL (8-24); CO2, Blood 24.0 mmol/L (21-32); Calcium, Blood 9.2 mg/dL (8.5-10.1); Chloride, Blood 108.0 mmol/L (98-108); Creatinine, Blood 0.69 mg/dL (0.40-1.00); Globulin, Blood 3.4 g/dL (2.2-4.0); Glucose, Blood 103.0 mg/dL (70-99); Magnesium, Blood 1.6 mg/dL (1.6-2.4); Potassium, Blood 3.8 mmol/L (3.5-5.5); Sodium, Blood 137.0 mmol/L (136-145); Total Protein, Blood 6.5 g/dL (6.4-8.2)
[2024-10-25] MEDS ORDERED: Magnesium Sulf 2 GM/Water 50ML 50 ML IV ONE (02:15)
[2024-10-25 04:38] VITALS: BP 140/95
[2024-10-25 05:09] LABS: BASOPHILS ABSOLUTE AUTO 0.06 K/mm3 (0.00-0.23); BASOPHILS PERCENT AUTO 1 % (0-2); EOSINOPHILS ABSOLUTE AUTO 0.22 K/mm3 (0.00-0.68); EOSINOPHILS PERCENT AUTO 5 % (0-6); Hematocrit 30.9 % (33.0-51.0); Hemoglobin 10.5 g/dL (11.5-16.0); IMMATURE GRAN ABSOLUTE AUTO 0.01 K/mm3 (0.00-0.10); IMMATURE GRAN PERCENT AUTO 0 % (0-1); LYMPHOCYTES ABSOLUTE AUTO 1.61 K/mm3 (0.84-5.20); LYMPHOCYTES PERCENT AUTO 38 % (21-46); MONOCYTES ABSOLUTE AUTO 0.24 K/mm3 (0.16-1.47); MONOCYTES PERCENT AUTO 6 % (4-13); Mean Corpuscular HGB Conc 34.0 g/dL (31.5-36.5); Mean Corpuscular Volume 95 fL (80-100); NEUTROPHILS ABSOLUTE AUTO 2.07 K/mm3 (1.96-9.15); NEUTROPHILS PERCENT AUTO 49 % (41-73); NRBC ABSOLUTE 0.00 K/mm3 (0.00-0.02); NRBC Auto 0.0 /100 WBC (0.0-0.2); Platelet Count 62 K/mm3 (150-400); RDW Coefficient Variation 15.8 % (11.7-14.2); RDW Standard Deviation 54.9 fL (35.1-46.3)
[2024-10-25 05:41] LABS: Alanine Aminotransfer (ALT/SGP 28.0 U/L (12-78); Albumin, Blood 3.1 g/dL (3.4-5.0); Albumin/Globulin Ratio 0.9 (0.8-1.8); Anion Gap 8.0 mmol/L (3-11); Aspartate Aminotrans (AST/SGOT 52.0 U/L (12-37); Bilirubin, Total 1.8 mg/dL (0.1-1.0); Blood Urea Nitrogen 8.0 mg/dL (8-24); CO2, Blood 25.0 mmol/L (21-32); Calcium, Blood 9.1 mg/dL (8.5-10.1); Chloride, Blood 107.0 mmol/L (98-108); Creatinine, Blood 0.68 mg/dL (0.40-1.00); Globulin, Blood 3.3 g/dL (2.2-4.0); Glucose, Blood 96.0 mg/dL (70-99); Potassium, Blood 3.8 mmol/L (3.5-5.5); Sodium, Blood 136.0 mmol/L (136-145); Total Protein, Blood 6.4 g/dL (6.4-8.2)
--- NOTE | 2024-10-25 06:25 | NUR ---
SHIFT SUMMARY PT ADMITTED FOR HEPATIC ENCEPHALOPATHY. PT IS ALERT AND ORIENTED TIMES 4. PT HAS LEFT FOREARM IV. PT APPEARED TO SLEEP ON AND OFF THROUGH THE NIGHT WITHOUT ISSUE. PT IS COOPERATIVE WITH TREATMENT FROM STAFF. BED IN LOW POSITION, CALL LIGHT WITHIN REACH, RAILS TIMES 2.
[2024-10-25 08:15] VITALS: BP 125/67
[2024-10-25] MEDS ORDERED: Enoxaparin 40 MG/0.4 ML SYR SC SCH (09:00)
[2024-10-25 14:18] LABS: Source, Urine Clean Catch
[2024-10-25 14:37] LABS: U Amphetamine Screen Not Detected; U Barbituate Screen Not Detected; U Benzodiazapine Screen Not Detected; U Buprenorphine Screen Not Detected; U Cannabinoids Screen Not Detected; U Cocaine Screen Not Detected; U Methadone Screen Not Detected; U Methamphetamine Screen Not Detected; U Opiates Screen Not Detected; U Oxycodone Screen Not Detected; U Phencyclidine Screen Not Detected
[2024-10-25 14:40] LABS: Bilirubin, Urine Neg (Neg); Color, Urine Yellow (P-Yellow); Glucose Qualitative, Urine Neg (Neg); Ketones, Urine Neg (Neg); Leukocyte Esterase, Urine Neg (Neg); Protein, Urine Neg (Neg); Specific Gravity, Urine 1.010 (1.003-1.022); Urobilinogen, Urine 1+ (Normal)
[2024-10-25 15:03] VITALS: BP 120/93
[2024-10-25 15:05] VITALS: BP 119/66
[2024-10-25] MEDS ORDERED: Albuterol HFA200 ACT/6.7 GM INH INH SCH (15:25)
--- NOTE | 2024-10-25 17:25 | NUR ---
End of shift report: Pt is alert and oriented x4; pleasant and cooperative with care. Pt with no complaints of pain, N/V/D, SOB, or CP today. Obtained UA per doctor order. Pt with 2 liquid stools this shift; doctor monitoring for potential to go home if continued 3 or more. All medications administered per EMAR. Pt utilizing call light appropriately; call light within reach and bed in lowest position. Will continue to montior until next shift nurse arrives and report given.
[2024-10-25] MEDS ORDERED: Albuterol HFA200 ACT/6.7 GM INH INH PRN (17:50)
[2024-10-25 19:42] VITALS: BP 144/60
[2024-10-26 03:34] VITALS: BP 138/63
[2024-10-26 07:50] VITALS: BP 133/60
[2024-10-26] MEDS ORDERED: Folic Acid 1 MG TAB PO SCH (09:00)
[2024-10-26] MEDS ORDERED: Cholecalciferol 1000 Unit Tablet (=25MCG) PO SCH (09:00)
[2024-10-26] MEDS ORDERED: Lidocaine 4% 1 Patch TOP SCH (09:00)
[2024-10-26] MEDS ORDERED: Potassium Chloride 10 Meq Tablet SA PO SCH (09:00)
[2024-10-26] MEDS ORDERED: FURO20 PO (13:42)
[2024-10-26] MEDS ORDERED: VITAMIN D5000 UNIT PO (13:43)
[2024-10-26] MEDS ORDERED: SPIR50 PO (13:43)
--- NOTE | 2024-10-26 15:06 | NUR ---
PT DISCHARGED HOME WITH SPOUSE. PT BELONGINGS GATHERED AND BAGGED PRIOR TO LEAVING ROOM. DISCUSSION WITH PT REGARDING MEDICATION SCRIPTS FAXED TO [facility] PER PREFERENCE. PT VERBALIZED UNDERSTANDING AND SIGNATURE OBTAINED. IV REMOVED PRIOR TO LEAVING ROOM. PT WHEELED DOWN TO EXIT VIA WHEELCHAIR AT 1455.
== END 2024-10-26 15:02 | disposition home or self-care (01) | DRG 441 ==
LOC: MEDS 16:43
PROVIDERS: ADMIT Internal Medicine
DX: K76.82 Hepatic encephalopathy (principal); G93.41 Metabolic encephalopathy; K76.6 Portal hypertension; D61.818 Other pancytopenia; Z68.41 Body mass index [BMI] 40.0-44.9, adult; K70.31 Alcoholic cirrhosis of liver with ascites; R16.1 Splenomegaly, not elsewhere classified; E87.6 Hypokalemia; E83.42 Hypomagnesemia; I08.1 Rheumatic disorders of both mitral and tricuspid valves; E78.5 Hyperlipidemia, unspecified; F51.04 Psychophysiologic insomnia; F32.A Depression, unspecified; E66.01 Morbid (severe) obesity due to excess calories; E11.9 Type 2 diabetes mellitus without complications; Z88.2 Allergy status to sulfonamides; Z88.8 Allergy status to other drugs, medicaments and biological substances; Z87.891 Personal history of nicotine dependence
CPT/HCPCS: 36415; 74177; 80053; 81003; 82140; 83735; 85025; 85610; 94760; A9270; J3475; Q9967

== ENCOUNTER → 2024-12-24 | Outpatient (CLI) | payer MEDICARE ==
[~2024-12-24] MED LIST changes: +ALBU90OI INH; +B-121000 MC3 PO; +FEROSUL325 M1 PO; +FURO20 PO; +LACT10SY PO; +LOSA25 PO; +MONT10T; +MOXIOPS LEFTEYE; +POTA10T PO; +Pulmicort Fle180 MCG; +SPIR50 PO; +VIT D3-VIT K21 EACH; +VITAMIN D5000 UNIT PO
[2024-12-24 20:27] LABS: Creatinine, Urine Random 94.80 mg/dL (27.00-270.00)
[2024-12-24 20:54] LABS: Microalb/Creat Ratio UR, Rand Unable to Calculate mg/g (0.000-30.000); Microalbumin, Random Urine <5.000 mg/L (0.000-20.000)
== END ==
LOC: LAB SHORT 15:48 → LAB 15:48
PROVIDERS: Family Medicine
DX: N28.9 Disorder of kidney and ureter, unspecified (principal)
CPT/HCPCS: 82043; 82570

== ENCOUNTER 2024-12-25 21:27 | Inpatient (IN) | payer MEDICARE ==
[~2024-12-25] VITALS: Ht 170.2 cm; Wt 113.7 kg
[~2024-12-25 21:27] MED LIST changes: -B-121000 MC3 PO
[2024-12-25 22:07] LABS: BASOPHILS ABSOLUTE AUTO 0.07 K/mm3 (0.00-0.23); BASOPHILS PERCENT AUTO 1 % (0-2); EOSINOPHILS ABSOLUTE AUTO 0.34 K/mm3 (0.00-0.68); EOSINOPHILS PERCENT AUTO 6 % (0-6); Hematocrit 31.9 % (33.0-51.0); Hemoglobin 11.1 g/dL (11.5-16.0); IMMATURE GRAN ABSOLUTE AUTO 0.01 K/mm3 (0.00-0.10); IMMATURE GRAN PERCENT AUTO 0 % (0-1); LYMPHOCYTES ABSOLUTE AUTO 2.04 K/mm3 (0.84-5.20); LYMPHOCYTES PERCENT AUTO 35 % (21-46); MONOCYTES ABSOLUTE AUTO 0.38 K/mm3 (0.16-1.47); MONOCYTES PERCENT AUTO 7 % (4-13); Mean Corpuscular HGB Conc 34.8 g/dL (31.5-36.5); Mean Corpuscular Volume 99 fL (80-100); NEUTROPHILS ABSOLUTE AUTO 2.97 K/mm3 (1.96-9.15); NEUTROPHILS PERCENT AUTO 51 % (41-73); NRBC ABSOLUTE 0.00 K/mm3 (0.00-0.02); NRBC Auto 0.0 /100 WBC (0.0-0.2); Platelet Count 66 K/mm3 (150-400); RDW Coefficient Variation 14.4 % (11.7-14.2); RDW Standard Deviation 51.8 fL (35.1-46.3)
[2024-12-25 22:21] LABS: Alanine Aminotransfer (ALT/SGP 42 U/L (12-78); Albumin, Blood 3.4 g/dL (3.4-5.0); Albumin/Globulin Ratio 1.0 (0.8-1.8); Anion Gap 13 mmol/L (3-11); Aspartate Aminotrans (AST/SGOT 56 U/L (12-37); Bilirubin, Total 2.5 mg/dL (0.1-1.0); Blood Urea Nitrogen 46 mg/dL (8-24); CO2, Blood 17 mmol/L (21-32); Calcium, Blood 9.5 mg/dL (8.5-10.1); Chloride, Blood 109 mmol/L (98-108); Creatinine, Blood 2.00 mg/dL (0.40-1.00); Ethanol (Alcohol), Blood, Med <3 mg/dL; Globulin, Blood 3.4 g/dL (2.2-4.0); Glucose, Blood 95 mg/dL (70-99); Potassium, Blood 4.4 mmol/L (3.5-5.5); Sodium, Blood 135 mmol/L (136-145); Total Protein, Blood 6.8 g/dL (6.4-8.2)
[2024-12-25 22:58] LABS: Alanine Aminotransfer (ALT/SGP 43.0 U/L (12-78); Albumin, Blood 3.4 g/dL (3.4-5.0); Albumin/Globulin Ratio 1.0 (0.8-1.8); Aspartate Aminotrans (AST/SGOT 58.0 U/L (12-37); Bilirubin, Direct 1.0 mg/dL (0.0-0.3); Bilirubin, Indirect 1.5 mg/dL (0.1-0.7); Bilirubin, Total 2.5 mg/dL (0.1-1.0); Globulin, Blood 3.5 g/dL (2.2-4.0); Total Protein, Blood 6.9 g/dL (6.4-8.2)
[2024-12-26] MEDS ORDERED: Lactulose 200 GM/300 ML Enema 300ML BTL PR ONE (01:00)
[2024-12-26 01:25] LABS: pH Blood Venous 7.50 (7.34-7.37)
[2024-12-26 03:27] LABS: Source, Urine Straight Cath
[2024-12-26 03:40] LABS: Bilirubin, Urine Neg (Neg); Glucose Qualitative, Urine Neg (Neg); Ketones, Urine Neg (Neg); Leukocyte Esterase, Urine Neg (Neg); Protein, Urine Neg (Neg); Specific Gravity, Urine 1.010 (1.003-1.022); Urobilinogen, Urine NORM (Normal)
[2024-12-26 03:53] LABS: U Amphetamine Screen Not Detected; U Barbituate Screen Not Detected; U Benzodiazapine Screen Not Detected; U Cocaine Screen Not Detected; U Methadone Screen Not Detected; U Methamphetamine Screen Not Detected; U Opiates Screen Not Detected; U Phencyclidine Screen Not Detected
[2024-12-26 03:54] LABS: U Buprenorphine Screen Not Detected; U Cannabinoids Screen Not Detected; U Oxycodone Screen Not Detected
[2024-12-26 04:01] LABS: Color, Urine Yellow (P-Yellow)
[2024-12-26 05:32] VITALS: BP 113/91
[2024-12-26 05:58] LABS: BASOPHILS ABSOLUTE AUTO 0.06 K/mm3 (0.00-0.23); BASOPHILS PERCENT AUTO 1 % (0-2); EOSINOPHILS ABSOLUTE AUTO 0.22 K/mm3 (0.00-0.68); EOSINOPHILS PERCENT AUTO 4 % (0-6); Hematocrit 31.0 % (33.0-51.0); Hemoglobin 10.9 g/dL (11.5-16.0); IMMATURE GRAN ABSOLUTE AUTO 0.01 K/mm3 (0.00-0.10); IMMATURE GRAN PERCENT AUTO 0 % (0-1); LYMPHOCYTES ABSOLUTE AUTO 1.65 K/mm3 (0.84-5.20); LYMPHOCYTES PERCENT AUTO 33 % (21-46); MONOCYTES ABSOLUTE AUTO 0.31 K/mm3 (0.16-1.47); MONOCYTES PERCENT AUTO 6 % (4-13); Mean Corpuscular HGB Conc 35.2 g/dL (31.5-36.5); Mean Corpuscular Volume 97 fL (80-100); NEUTROPHILS ABSOLUTE AUTO 2.70 K/mm3 (1.96-9.15); NEUTROPHILS PERCENT AUTO 55 % (41-73); NRBC ABSOLUTE 0.00 K/mm3 (0.00-0.02); NRBC Auto 0.0 /100 WBC (0.0-0.2); Platelet Count 71 K/mm3 (150-400); RDW Coefficient Variation 14.5 % (11.7-14.2); RDW Standard Deviation 51.6 fL (35.1-46.3)
--- NOTE | 2024-12-26 06:14 | NUR ---
RECIEVED PT FROM ER REPORT FROM ALEKSANDR. PATIENT IS A&O TO SELF ONLY. PT WITH RAPID EYE MOVEMENTS AND JERKY MOVEMENTS IN ALL EXTREMETIES. RASH/EXCORIATION UNDER PANNUS WAS CLEANED WITH WIPES AND BABY POWDER WAS ADDED D/T IT BEING MOIST. PT HAS RECTAL TUBE INSERTED. IV FLUSHED. BED IN LOWEST POSITION, BED EXIT ALARM ACTIVATED, CALL LIGHT PROVIDED.
[2024-12-26 06:20] LABS: Alanine Aminotransfer (ALT/SGP 42.0 U/L (12-78); Albumin, Blood 3.5 g/dL (3.4-5.0); Albumin/Globulin Ratio 1.0 (0.8-1.8); Anion Gap 13.0 mmol/L (3-11); Aspartate Aminotrans (AST/SGOT 54.0 U/L (12-37); Bilirubin, Total 3.0 mg/dL (0.1-1.0); Blood Urea Nitrogen 47.0 mg/dL (8-24); CO2, Blood 20.0 mmol/L (21-32); Calcium, Blood 10.1 mg/dL (8.5-10.1); Chloride, Blood 106.0 mmol/L (98-108); Creatinine, Blood 1.89 mg/dL (0.40-1.00); Globulin, Blood 3.4 g/dL (2.2-4.0); Glucose, Blood 98.0 mg/dL (70-99); Potassium, Blood 4.1 mmol/L (3.5-5.5); Sodium, Blood 135.0 mmol/L (136-145); Total Protein, Blood 6.9 g/dL (6.4-8.2)
--- NOTE | 2024-12-26 06:46 | NUR ---
PATIENT HAS TRIED TO EXIT BED MULTIPLE TIMES. REDIRECTABLE, HOWEVER SHE ALMOST IMMEDIATELY TRIES TO GET UP AGAIN. WHEN ASKED WHERE SHE IS GOING SHE STATES "OH I WAS JUST LEAVING". BED EXIT ALARM ON, AND BED IN LOWEST POSITION.
[2024-12-26 07:53] VITALS: BP 115/54
[2024-12-26] MEDS ORDERED: Enoxaparin 40 MG/0.4 ML SYR SC SCH (09:00)
[2024-12-26] MEDS ORDERED: B-121000 MC3 PO (09:46)
--- NOTE | 2024-12-26 11:25 | NUR ---
RN NOTE MS [place] IS ORIENTATED TO HER NAME AND TO [place], NOT HOSPITAL, DATE OR SITUATION. SHE CAN FOLLOW SOME BASIC DIRECTIONS, BUT HAS DIFFICULTY FOLLOWING OTHER BASIC DIRECTIONS LIKE SITTING DOWN ON THE BEDSIDE COMMODE. SHE WAS ABLE TO STAND WITH 1-2 PERSON ASSIST, DIFFICULTY FOLLOWING DIRECTIONS BUT ABLE TO TAKE HER WEIGHT FINE. SHE WAS TRYING TO GET OUT OF BED MULTIPLE TIMES THIS MORNING, SITTER AT BEDSIDE. SHE IS MORE SETTLED NOW WITH FAMILY HERE. + LIQUID BM THIS AM. RECTAL TUBE FELL OUT AND LEFT OUT. IVF INFUSING, SHE WILL DRINK WITH REMINDED IN SMALL SIPS. SHE DID NOT EAT ANY BREAKFAST. AT THE BEDSIDE SAID THAT SHE IS RESPONDING BETTER NOW THAN WHEN SHE WAS AT HOME LAST NIGHT.
[2024-12-26 15:20] VITALS: BP 102/54
--- NOTE | 2024-12-26 17:52 | NUR ---
SHIFT SUMMARY SEE PRIOR NOTE, MS [place] IS ABLE TO FOLLOW VERY SIMPLE INSTRUCTIONS BUT HAS DIFFICULTY FEEDING HERSELF OR BRUSHING HER TEETH. SHE CAN WALK INTO THE BATHROOM WITH ASSISTANCE AND GUIDANCE. SHE HAS HAD 2 DECENT SIZED BOWEL MOVEMENTS THIS SHIFT. SHE IS RESTLESS, RESTLESS LEG MOVEMENTS, HEAD AND NECK MOVEMENTS. SHE IS ORIENTATED TO HERSELF ONLY, SOMETIMES TO NOONAN. HER WAS AT HER BEDSDIE FOR MUCH OF THE DAY. SHE HAD A SITTER FOR SAFETY, SHE WAS VERY IMPULSIVE EARLIER THIS SHIFT, BUT HAS BEEN LESS IMPULSIVE THE SHIFT PROGRESSED. IVF INFUSING. SHE HAS TOLERATED PO FLUIDS AND ENSURE BUT HAS LEFT BREAKFAST AND LUNCH ALMOST UNTOUCHED. CONTINENT OF URINE AND STOOL. BED LOW, CALL LIGHT IN REACH, BED ALARM ON.
[2024-12-26] MEDS ORDERED: Albuterol HFA200 ACT/6.7 GM INH INH PRN (21:10)
--- NOTE | 2024-12-27 04:16 | NUR ---
PATIENT TOOK LACTULOSE DOSES HOWEVER HER MIDNIGHT DOSING WAS DIFFICULT TO REORIENT HER ENOUGH TO TAKE. PATIENT IS CONTINENT. DESPITE MULTIPLE DOSES OF LACTULOSE, PATIENT HAS NOT HAD A BOWEL MOVEMENT ON THIS SHIFT AT THIS TIME. SHE DID USE THE BSC FOR A URINE OUTPUT OF 525. I CALLED THE PROVIDER ABOUT IV FLUIDS FOR HYDRATION HOWEVER NO ORDER WAS GIVEN. PATIENT RECIEVED A BED BATH AND I BRUSHED HER TEETH AND HER HAIR FOR HER. SHE IS A TWO PERSON ASSIST FOR ROLLS AND TOILETING. PATIENT CONTINUES TO ONLY BE ORIENTED TO SELF, SOMETIMES UNABLE TO TELL ME HER HTDAY CORRECTLY. BED IN LOWEST POSITION, BED EXIT ALARM ENGAGED, CALL MANE WITHIN REACH.
[2024-12-27 04:43] VITALS: BP 163/69
--- NOTE | 2024-12-27 05:11 | NUR ---
PT COUGHED SOME AFTER MORNING MEDS WHICH I GAVE IN PUDDING, WELL AFTER SIPPING WATER FROM A STRAW. SHE NEEDS ACTIVE REDIRECTION AND ENCOURAGEMENT TO SWALLOW OR ELSE SHE WILL HOLD WHATVER SHE IS GIVEN IN HER MOUHT. HIGHLY RECCOMEND SPEECH EVAL.
[2024-12-27 07:23] VITALS: BP 143/66
[2024-12-27 07:35] LABS: BASOPHILS ABSOLUTE AUTO 0.06 K/mm3 (0.00-0.23); BASOPHILS PERCENT AUTO 1 % (0-2); EOSINOPHILS ABSOLUTE AUTO 0.39 K/mm3 (0.00-0.68); EOSINOPHILS PERCENT AUTO 6 % (0-6); Hematocrit 32.5 % (33.0-51.0); Hemoglobin 11.3 g/dL (11.5-16.0); IMMATURE GRAN ABSOLUTE AUTO 0.01 K/mm3 (0.00-0.10); IMMATURE GRAN PERCENT AUTO 0 % (0-1); LYMPHOCYTES ABSOLUTE AUTO 2.09 K/mm3 (0.84-5.20); LYMPHOCYTES PERCENT AUTO 34 % (21-46); MONOCYTES ABSOLUTE AUTO 0.43 K/mm3 (0.16-1.47); MONOCYTES PERCENT AUTO 7 % (4-13); Mean Corpuscular HGB Conc 34.8 g/dL (31.5-36.5); Mean Corpuscular Volume 99 fL (80-100); NEUTROPHILS ABSOLUTE AUTO 3.16 K/mm3 (1.96-9.15); NEUTROPHILS PERCENT AUTO 51 % (41-73); NRBC ABSOLUTE 0.00 K/mm3 (0.00-0.02); NRBC Auto 0.0 /100 WBC (0.0-0.2); Platelet Count 72 K/mm3 (150-400); RDW Coefficient Variation 14.4 % (11.7-14.2); RDW Standard Deviation 52.7 fL (35.1-46.3)
[2024-12-27 07:58] LABS: Alanine Aminotransfer (ALT/SGP 46.0 U/L (12-78); Albumin, Blood 3.5 g/dL (3.4-5.0); Albumin/Globulin Ratio 1.0 (0.8-1.8); Anion Gap 10.0 mmol/L (3-11); Aspartate Aminotrans (AST/SGOT 60.0 U/L (12-37); Bilirubin, Total 3.1 mg/dL (0.1-1.0); Blood Urea Nitrogen 36.0 mg/dL (8-24); CO2, Blood 21.0 mmol/L (21-32); Calcium, Blood 10.0 mg/dL (8.5-10.1); Chloride, Blood 110.0 mmol/L (98-108); Creatinine, Blood 1.28 mg/dL (0.40-1.00); Globulin, Blood 3.4 g/dL (2.2-4.0); Glucose, Blood 95.0 mg/dL (70-99); Potassium, Blood 4.1 mmol/L (3.5-5.5); Sodium, Blood 137.0 mmol/L (136-145); Total Protein, Blood 6.9 g/dL (6.4-8.2)
[2024-12-27] MEDS ORDERED: Cholecalciferol 1000 Unit Tablet (=25MCG) PO SCH (09:00)
[2024-12-27] MEDS ORDERED: Folic Acid 1 MG TAB PO SCH (09:00)
[2024-12-27 14:34] VITALS: BP 130/56
[2024-12-27 19:44] VITALS: BP 138/112
[2024-12-27 19:46] VITALS: BP 124/97
--- NOTE | 2024-12-27 19:52 | NUR ---
SHIFT SUMMARY PT IS A/O TO SELF AND , ABLE TO RECALL AFTER THINKING ABOUT IT FOR A MINUTE. UP WITH 1 PERSON ASSIST TO CHAIR/BSC. IMPULSIVE AT TIMES. EASILY REDIRECTABLE WITH FREQUENT DIRECTION AND REMINDERS. PT IS CONT OF BLADDER AND BOWELS. AT BEDSIDE FOR MUCH OF THIS SHIFT.
[2024-12-28 03:44] VITALS: BP 150/138
[2024-12-28 04:49] VITALS: BP 142/64
--- NOTE | 2024-12-28 06:06 | NUR ---
SHIFT SUMMARY; PATIENT MILDLY CONFUSED ALL NIGHT EASY TO REDIRECT. NOTED THAT SHE HAS HAD A TOTAL OF 13 DOSES OF LACTULOSE WITH ONLY 1 RECORD BM. NO BM THIS SHIFT.
[2024-12-28 07:17] VITALS: BP 140/77
[2024-12-28 10:18] LABS: BASOPHILS ABSOLUTE AUTO 0.07 K/mm3 (0.00-0.23); BASOPHILS PERCENT AUTO 1 % (0-2); EOSINOPHILS ABSOLUTE AUTO 0.31 K/mm3 (0.00-0.68); EOSINOPHILS PERCENT AUTO 5 % (0-6); Hematocrit 33.9 % (33.0-51.0); Hemoglobin 11.4 g/dL (11.5-16.0); IMMATURE GRAN ABSOLUTE AUTO 0.01 K/mm3 (0.00-0.10); IMMATURE GRAN PERCENT AUTO 0 % (0-1); LYMPHOCYTES ABSOLUTE AUTO 1.69 K/mm3 (0.84-5.20); LYMPHOCYTES PERCENT AUTO 29 % (21-46); MONOCYTES ABSOLUTE AUTO 0.35 K/mm3 (0.16-1.47); MONOCYTES PERCENT AUTO 6 % (4-13); Mean Corpuscular HGB Conc 33.6 g/dL (31.5-36.5); Mean Corpuscular Volume 102 fL (80-100); NEUTROPHILS ABSOLUTE AUTO 3.43 K/mm3 (1.96-9.15); NEUTROPHILS PERCENT AUTO 59 % (41-73); NRBC ABSOLUTE 0.00 K/mm3 (0.00-0.02); NRBC Auto 0.0 /100 WBC (0.0-0.2); Platelet Count 68 K/mm3 (150-400); RDW Coefficient Variation 14.6 % (11.7-14.2); RDW Standard Deviation 54.0 fL (35.1-46.3)
[2024-12-28 10:43] LABS: Alanine Aminotransfer (ALT/SGP 51.0 U/L (12-78); Albumin, Blood 3.7 g/dL (3.4-5.0); Albumin/Globulin Ratio 1.0 (0.8-1.8); Anion Gap 10.0 mmol/L (3-11); Aspartate Aminotrans (AST/SGOT 71.0 U/L (12-37); Bilirubin, Total 3.8 mg/dL (0.1-1.0); Blood Urea Nitrogen 31.0 mg/dL (8-24); CO2, Blood 21.0 mmol/L (21-32); Calcium, Blood 10.1 mg/dL (8.5-10.1); Chloride, Blood 108.0 mmol/L (98-108); Creatinine, Blood 1.17 mg/dL (0.40-1.00); Globulin, Blood 3.7 g/dL (2.2-4.0); Glucose, Blood 102.0 mg/dL (70-99); Potassium, Blood 3.9 mmol/L (3.5-5.5); Sodium, Blood 135.0 mmol/L (136-145); Total Protein, Blood 7.4 g/dL (6.4-8.2)
[2024-12-28 16:08] VITALS: BP 128/103
--- NOTE | 2024-12-28 16:53 | NUR ---
PT PLEASANT TODAY. NO C/O PAIN, NOT ABLE TO ANSWER MOST QUESTIONS ON ORIENTED STATUS. FAMILY STATES SHE IMPROVING SOME. MORE WITTY THIS AFTERNOON, BUT NOT GOOD ON DIRECT QUESTIONS. NO B/M TODAY OF YET. INCREASED LACTULOSE TODAY. NO OTHER NEW CONCERNS NOTED. BED IN LOW POSITION, CALL LITE IN REACH, FAMILY AT BEDSIDE.
[2024-12-28 20:02] VITALS: BP 139/83
--- NOTE | 2024-12-29 04:16 | NUR ---
PER DAY SHIFT PATIENT WAS ALERT AND ORIENTED 2-3, FOR ME AT THE BEGINNING OF SHIFT PT WAS ALERT AND ORIENTED X3 HOWEVER OVER THE NIGHT SHE WENT BACK TO BEING A&O X1, UNABLE TO REMEBER OR PERHAPS VERBALIZE HER BIRTHDATE. PT TOOK HER PO LACTULOSE FROM A MEDICINE CUP WITH COACHING. NO ACUTE CHANGES. VITALS STABLE. BED IN LOWEST AND LOCKED POSITION, CALL MANE AND PERSONAL BELONGINGS WITHIN REACH.
[2024-12-29 05:07] VITALS: BP 148/65
[2024-12-29 06:22] LABS: BASOPHILS ABSOLUTE AUTO 0.10 K/mm3 (0.00-0.23); BASOPHILS PERCENT AUTO 2 % (0-2); EOSINOPHILS ABSOLUTE AUTO 0.50 K/mm3 (0.00-0.68); EOSINOPHILS PERCENT AUTO 7 % (0-6); Hematocrit 35.1 % (33.0-51.0); Hemoglobin 12.1 g/dL (11.5-16.0); IMMATURE GRAN ABSOLUTE AUTO 0.00 K/mm3 (0.00-0.10); IMMATURE GRAN PERCENT AUTO 0 % (0-1); LYMPHOCYTES ABSOLUTE AUTO 2.52 K/mm3 (0.84-5.20); LYMPHOCYTES PERCENT AUTO 37 % (21-46); MONOCYTES ABSOLUTE AUTO 0.44 K/mm3 (0.16-1.47); MONOCYTES PERCENT AUTO 6 % (4-13); Mean Corpuscular HGB Conc 34.5 g/dL (31.5-36.5); Mean Corpuscular Volume 101 fL (80-100); NEUTROPHILS ABSOLUTE AUTO 3.33 K/mm3 (1.96-9.15); NEUTROPHILS PERCENT AUTO 48 % (41-73); NRBC ABSOLUTE 0.00 K/mm3 (0.00-0.02); NRBC Auto 0.0 /100 WBC (0.0-0.2); Platelet Count 72 K/mm3 (150-400); RDW Coefficient Variation 14.5 % (11.7-14.2); RDW Standard Deviation 53.1 fL (35.1-46.3)
[2024-12-29 06:45] LABS: Alanine Aminotransfer (ALT/SGP 54.0 U/L (12-78); Albumin, Blood 3.7 g/dL (3.4-5.0); Albumin/Globulin Ratio 0.9 (0.8-1.8); Anion Gap 11.0 mmol/L (3-11); Aspartate Aminotrans (AST/SGOT 72.0 U/L (12-37); Bilirubin, Total 3.5 mg/dL (0.1-1.0); Blood Urea Nitrogen 30.0 mg/dL (8-24); CO2, Blood 20.0 mmol/L (21-32); Calcium, Blood 10.9 mg/dL (8.5-10.1); Chloride, Blood 108.0 mmol/L (98-108); Creatinine, Blood 1.15 mg/dL (0.40-1.00); Globulin, Blood 3.9 g/dL (2.2-4.0); Glucose, Blood 93.0 mg/dL (70-99); Potassium, Blood 3.9 mmol/L (3.5-5.5); Sodium, Blood 135.0 mmol/L (136-145); Total Protein, Blood 7.6 g/dL (6.4-8.2)
[2024-12-29 07:20] VITALS: BP 142/72
[2024-12-29 14:58] VITALS: BP 152/68
[2024-12-29 19:46] VITALS: BP 100/54
--- NOTE | 2024-12-29 21:12 | NUR ---
PT IS HALLUCINATING THAT THERE IS A DOG IN THE CORNER, CHICKENS RUNNING ON THE FLOOR AND WHILE SHE IS SITTING IN HER CHAIR SHE IS ACTIVELY TALKING TO SOMEONE LAYING IN HER BED. WHEN ASKED WHO WAS LAYING IN THE BED SHE SAID "OH DONT WORRY HE IS FAST ASLEEP"
--- NOTE | 2024-12-30 04:42 | NUR ---
PATIENT RESTED OVERNIGHT. TOOK ALL OF HER MEDICATION PER EMAR. PATIENT DID NOT REQUIRE THE ONE TIME DOSE OF SEROQUEL THAT BETHEL GAVE. KENNETH AND I REORIENTED THE PATIENT AND SETTLED HER INTO BED AT WHICH TIME SHE RESTED AND STOPPED TRYING TO GET UP. SHE HAS NOT MENTIONED ANY CHICKENS IN HER ROOM DURING MED PASS TIMES OVER NIGHT. REMAINS A&OX 1-2. NO ACUTE CHANGES, VITALS STABLE. BED IN LOW POSITION, BELONGINGS AND CALL MANE WITHIN REACH, SCD'S ON. BED EXIT ALARM ACTIVATED.
[2024-12-30 05:22] VITALS: BP 115/58
[2024-12-30 06:37] LABS: Alanine Aminotransfer (ALT/SGP 53.0 U/L (12-78); Albumin, Blood 3.5 g/dL (3.4-5.0); Albumin/Globulin Ratio 1.1 (0.8-1.8); Anion Gap 11.0 mmol/L (3-11); Aspartate Aminotrans (AST/SGOT 71.0 U/L (12-37); Bilirubin, Total 3.1 mg/dL (0.1-1.0); Blood Urea Nitrogen 32.0 mg/dL (8-24); CO2, Blood 22.0 mmol/L (21-32); Calcium, Blood 10.7 mg/dL (8.5-10.1); Chloride, Blood 108.0 mmol/L (98-108); Creatinine, Blood 1.28 mg/dL (0.40-1.00); Globulin, Blood 3.3 g/dL (2.2-4.0); Glucose, Blood 92.0 mg/dL (70-99); Potassium, Blood 3.9 mmol/L (3.5-5.5); Sodium, Blood 137.0 mmol/L (136-145); Total Protein, Blood 6.8 g/dL (6.4-8.2)
[2024-12-30 06:53] LABS: BASOPHILS ABSOLUTE AUTO 0.07 K/mm3 (0.00-0.23); BASOPHILS PERCENT AUTO 1 % (0-2); EOSINOPHILS ABSOLUTE AUTO 0.39 K/mm3 (0.00-0.68); EOSINOPHILS PERCENT AUTO 6 % (0-6); Hematocrit 31.0 % (33.0-51.0); Hemoglobin 10.7 g/dL (11.5-16.0); IMMATURE GRAN ABSOLUTE AUTO 0.01 K/mm3 (0.00-0.10); IMMATURE GRAN PERCENT AUTO 0 % (0-1); LYMPHOCYTES ABSOLUTE AUTO 2.10 K/mm3 (0.84-5.20); LYMPHOCYTES PERCENT AUTO 33 % (21-46); MONOCYTES ABSOLUTE AUTO 0.54 K/mm3 (0.16-1.47); MONOCYTES PERCENT AUTO 9 % (4-13); Mean Corpuscular HGB Conc 34.5 g/dL (31.5-36.5); Mean Corpuscular Volume 100 fL (80-100); NEUTROPHILS ABSOLUTE AUTO 3.27 K/mm3 (1.96-9.15); NEUTROPHILS PERCENT AUTO 51 % (41-73); NRBC ABSOLUTE 0.00 K/mm3 (0.00-0.02); NRBC Auto 0.0 /100 WBC (0.0-0.2); Platelet Count 58 K/mm3 (150-400); RDW Coefficient Variation 14.5 % (11.7-14.2); RDW Standard Deviation 52.4 fL (35.1-46.3)
[2024-12-30 07:54] VITALS: BP 119/86
--- NOTE | 2024-12-30 08:32 | NUR ---
ASSUMPTION OF CARE: THIS RN ASSUMED CARE OF PATIENT, OVERSEEING CARE OF ORIENTING RNTJ. ASLEEP DURING SHIFT CHANGE REPORT. LYING IN BED c HOB ELEVATED. BREATHING EVEN AND UNLABORED c ROOM AIR. BED IN LOWEST POSITION. CALL LIGHT WITHIN REACH. ACUTE NEEDS MET.
[2024-12-30 15:09] VITALS: BP 123/81
--- NOTE | 2024-12-30 15:21 | NUR ---
DR KOEHLER NOTIFIED OF PT'S INCREASED AMMONIA LEVEL.
[2024-12-30] MEDS ORDERED: Lactulose 200 GM/300 ML Enema 300ML BTL PR SCH (18:00)
--- NOTE | 2024-12-30 18:57 | NUR ---
END OF SHIFT SUMMARY: A&Ox1-3 c WAXING AND WANING MENTATION, WORSENING THE DAY PROGRESSES. DOES NOT UTILIZE CALL LIGHT. BED ALARM FOR IMPULSIVENESS. 1PA c FWW TO BATHROOM. ATAXIC. NOTED TO BE VERY FIDGETY. LIQUID BROWN STOOLS NOTED TODAY. RECHECK OF AMMONIA LEVEL SHOWS INCREASE FROM 147 ON 12/26 TO 177 TODAY DESPITE MULTIPLE DOSES OF LACTULOSE. RECEIVED ORDER FOR LACTULOSE ENEMA, BUT PATIENT HAS BEEN EXTREMELY AGITATED THIS EVENING AND VEHEMENTLY REFUSES. ASKED IF PT COULD BE SEDATED IN ORDER ADMINISTER ENEMA; EDUCATED PROVIDED ON HEPATIC METABOLISM OF SEDATING MEDICATIONS AND RISK VERSUS BENEFIT, WELL PATIENT'S RIGHTS. POOR APPETITE TODAY, BUT THIS EVENING WAS PARANOID, AFRAID HER FOOD AND BEVERAGES HAD BEEN TAMPERED WITH. , MAXIMO, TO VISIT MUCH OF DAY. SPEAKS SOFTLY WITH PATIENT, BUT ATTEMPTS TO REDIRECT HER HAVE FAILED, THUS FAR. BED IN LOWEST POSITION, CALL LIGHT WITHIN REACH, ALL NEEDS MET. REPORT TO ONCOMING NURSE.
[2024-12-30 19:40] VITALS: BP 111/62
[2024-12-31 04:41] VITALS: BP 127/76
--- NOTE | 2024-12-31 06:14 | NUR ---
Shift Summary AOx1 to self. Unable to tell me where she lives or where she is. In fact, claims that she lives in [place]. Patient even forgot her Jacques's last name. Slept most of the shift and then woke up around 1am and stayed up until 4:30am. Patient refused last night's lactulose enema and has also refused this morning's dose. Will continue to try and persuade patient to allow administration of lactulose enema saying that she had multiple accidents before where poo was running down her legs. Denies pain. VSS. Pleasantly confused. Patient was starting have auditory hallucination asking if there is a dog in here, pt was redirectable and then fell back to sleep shortly.
[2024-12-31 06:30] LABS: BASOPHILS ABSOLUTE AUTO 0.06 K/mm3 (0.00-0.23); BASOPHILS PERCENT AUTO 1 % (0-2); EOSINOPHILS ABSOLUTE AUTO 0.39 K/mm3 (0.00-0.68); EOSINOPHILS PERCENT AUTO 8 % (0-6); Hematocrit 29.0 % (33.0-51.0); Hemoglobin 10.3 g/dL (11.5-16.0); IMMATURE GRAN ABSOLUTE AUTO 0.01 K/mm3 (0.00-0.10); IMMATURE GRAN PERCENT AUTO 0 % (0-1); LYMPHOCYTES ABSOLUTE AUTO 1.57 K/mm3 (0.84-5.20); LYMPHOCYTES PERCENT AUTO 30 % (21-46); MONOCYTES ABSOLUTE AUTO 0.34 K/mm3 (0.16-1.47); MONOCYTES PERCENT AUTO 7 % (4-13); Mean Corpuscular HGB Conc 35.5 g/dL (31.5-36.5); Mean Corpuscular Volume 99 fL (80-100); NEUTROPHILS ABSOLUTE AUTO 2.80 K/mm3 (1.96-9.15); NEUTROPHILS PERCENT AUTO 54 % (41-73); NRBC ABSOLUTE 0.00 K/mm3 (0.00-0.02); NRBC Auto 0.0 /100 WBC (0.0-0.2); Platelet Count 58 K/mm3 (150-400); RDW Coefficient Variation 14.3 % (11.7-14.2); RDW Standard Deviation 51.5 fL (35.1-46.3)
[2024-12-31 06:53] LABS: Alanine Aminotransfer (ALT/SGP 52.0 U/L (12-78); Albumin, Blood 3.3 g/dL (3.4-5.0); Albumin/Globulin Ratio 1.1 (0.8-1.8); Anion Gap 11.0 mmol/L (3-11); Aspartate Aminotrans (AST/SGOT 70.0 U/L (12-37); Bilirubin, Total 3.7 mg/dL (0.1-1.0); Blood Urea Nitrogen 34.0 mg/dL (8-24); CO2, Blood 21.0 mmol/L (21-32); Calcium, Blood 10.2 mg/dL (8.5-10.1); Chloride, Blood 106.0 mmol/L (98-108); Creatinine, Blood 1.12 mg/dL (0.40-1.00); Globulin, Blood 3.1 g/dL (2.2-4.0); Glucose, Blood 96.0 mg/dL (70-99); Potassium, Blood 3.7 mmol/L (3.5-5.5); Sodium, Blood 134.0 mmol/L (136-145); Total Protein, Blood 6.4 g/dL (6.4-8.2)
[2024-12-31 08:02] VITALS: BP 138/99
--- NOTE | 2024-12-31 08:38 | NUR ---
NOTIFIED BY [employer] HELPER THAT PATIENT WENT TO BATHROOM THIS MORNING, ONLY VOIDED. FREDIS BLOOD NOTED IN TOILET. UNSURE OF ORIGIN (VAGINAL OR URETHERAL). PLT COUNT THIS MORNING 58. PER DR KOEHLER, MONITOR URINE. ALSO NOTIFIED OF REFUSAL OF LACTULOSE ENEMA. T.O. TO ADD LACTULOSE 30GM PO Q4H.
[2024-12-31] MEDS ORDERED: Lactulose 200 GM/300 ML Enema 300ML BTL PR ONE (14:10)
[2024-12-31 15:43] VITALS: BP 113/67
--- NOTE | 2024-12-31 18:01 | NUR ---
END OF SHIFT SUMMARY: A&Ox2-4; WAXES AND WANES. PLEASANT AND COOPERATIVE WITH MOST CARE. USES CALL LIGHT AND ADVOCATES NEEDS 50% OF TIME. VSS. BREATHING EVEN AND UNLABORED c RA. CONTINENT OF BOWEL AND BLADDER. MEDS WHOLE c FLUIDS. TOLERATING DIET; BETTER APPETITE AT LUNCH TODAY. CONTINUES TO BE SLEEPY AND OFTEN DOZES OFF IN RECLINER. @ BEDSIDE MUCH OF DAY. PT AMENDABLE TO LACTULOSE ENEMA. NOTED TO HAVE FREDIS RED BLOOD AND HEMORRHOIDS AROUND RECTUM. TOLERATED RETENTION ENEMA x10-15 MINUTES BEFORE HAVING EXTRA LARGE, BROWN, LOOSE STOOL. NO CLEARING OF MENTATION NOTED SINCE ADMINISTRATION. PER DR KOEHLER: CONTINUE c PO LACTULOSE Q4H. BED IN LOWEST POSITION, CALL LIGHT WITHIN REACH, ALL NEEDS MET. REPORT TO ONCOMING NURSE.
[2024-12-31 20:01] VITALS: BP 133/68
--- NOTE | 2025-01-01 03:56 | NUR ---
SHIFT SUMMARY PT ALERT ORIENTED WITH CONFUSION AND HALLUCINATIONS. SHES SEEING DOGS IN HER ROOM AND OTHER THINGS THAT ARENT ACTUALLY IN HER ROOM. SHES HERE WITH A DX OF ACUTE HEPATIC ENCEPHALOPATHY, JOSE D AND CIRRHOSIS OF LIVER. REMAINS ON LACTULOSE Q4HR. SHES HAD 2 STOOLS THIS SHIFT. VSS ON RA SATTING AT 100%. NO C/O PAIN THIS SHIFT. AMBULATES WITH WALKER WITH SBA TO BATHROOM. SHE HAS SPASTIC MOVEMENTS WITH HER HEAD AND UPPER BODY. RESTING IN BED AT THIS TIME WITH CALL LIGHT IN REACH
[2025-01-01 05:13] VITALS: BP 152/73
[2025-01-01 05:42] LABS: BASOPHILS ABSOLUTE AUTO 0.07 K/mm3 (0.00-0.23); BASOPHILS PERCENT AUTO 1 % (0-2); EOSINOPHILS ABSOLUTE AUTO 0.44 K/mm3 (0.00-0.68); EOSINOPHILS PERCENT AUTO 7 % (0-6); Hematocrit 27.5 % (33.0-51.0); Hemoglobin 9.6 g/dL (11.5-16.0); IMMATURE GRAN ABSOLUTE AUTO 0.01 K/mm3 (0.00-0.10); IMMATURE GRAN PERCENT AUTO 0 % (0-1); LYMPHOCYTES ABSOLUTE AUTO 1.77 K/mm3 (0.84-5.20); LYMPHOCYTES PERCENT AUTO 29 % (21-46); MONOCYTES ABSOLUTE AUTO 0.48 K/mm3 (0.16-1.47); MONOCYTES PERCENT AUTO 8 % (4-13); Mean Corpuscular HGB Conc 34.9 g/dL (31.5-36.5); Mean Corpuscular Volume 100 fL (80-100); NEUTROPHILS ABSOLUTE AUTO 3.39 K/mm3 (1.96-9.15); NEUTROPHILS PERCENT AUTO 55 % (41-73); NRBC ABSOLUTE 0.00 K/mm3 (0.00-0.02); NRBC Auto 0.0 /100 WBC (0.0-0.2); Platelet Count 60 K/mm3 (150-400); RDW Coefficient Variation 14.5 % (11.7-14.2); RDW Standard Deviation 51.9 fL (35.1-46.3)
[2025-01-01 06:05] LABS: Alanine Aminotransfer (ALT/SGP 54.0 U/L (12-78); Albumin, Blood 3.1 g/dL (3.4-5.0); Albumin/Globulin Ratio 1.0 (0.8-1.8); Anion Gap 10.0 mmol/L (3-11); Aspartate Aminotrans (AST/SGOT 73.0 U/L (12-37); Bilirubin, Total 3.5 mg/dL (0.1-1.0); Blood Urea Nitrogen 29.0 mg/dL (8-24); CO2, Blood 21.0 mmol/L (21-32); Calcium, Blood 10.2 mg/dL (8.5-10.1); Chloride, Blood 108.0 mmol/L (98-108); Creatinine, Blood 0.92 mg/dL (0.40-1.00); Globulin, Blood 3.2 g/dL (2.2-4.0); Glucose, Blood 106.0 mg/dL (70-99); Potassium, Blood 3.3 mmol/L (3.5-5.5); Sodium, Blood 136.0 mmol/L (136-145); Total Protein, Blood 6.3 g/dL (6.4-8.2)
[2025-01-01 08:16] VITALS: BP 141/87
--- NOTE | 2025-01-01 17:06 | NUR ---
SHIFT SUMMARY: PATIENT IS A&OX2-3, 1 PERSON/SBA ASSIST. SHE IS CONTINENT, SHE HAS HAD 3/4 BOWEL MOVEMENTS THIS SHIFT. PER DR. KOEHLER GOAL IS [address] KOEHLER AWARE OF BRIGHT RED BLOOD PERIODICALLY WITH STOOLS; MORE THAN LIKELY HEMMORHOIDS. SHE IS EAGER TO GO HOME, AT BEDSIDE MOST OF THE SHIFT, ASSISTS WITH PATIENT CARE. SHE IS PLEASANT AND COOPERATIVE, EASILY REDIRECTABLE, TAKES HER MEDICATIONS. SHE IS IN HER BEDSIDE CHAIR, CALL LIGHT WITHIN REACH, NO SIGNS OR SYMPTOMS OF DISTRESS, PLAN OF CARE ONGOING.
[2025-01-01 18:07] VITALS: BP 117/76
[2025-01-01 18:27] LABS: Hematocrit 30.4 % (33.0-51.0); Hemoglobin 10.4 g/dL (11.5-16.0)
[2025-01-01 20:11] VITALS: BP 131/86
[2025-01-02 05:03] VITALS: BP 133/75
[2025-01-02 05:03] LABS: BASOPHILS ABSOLUTE AUTO 0.07 K/mm3 (0.00-0.23); BASOPHILS PERCENT AUTO 1 % (0-2); EOSINOPHILS ABSOLUTE AUTO 0.38 K/mm3 (0.00-0.68); EOSINOPHILS PERCENT AUTO 7 % (0-6); Hematocrit 26.6 % (33.0-51.0); Hemoglobin 9.4 g/dL (11.5-16.0); IMMATURE GRAN ABSOLUTE AUTO 0.01 K/mm3 (0.00-0.10); IMMATURE GRAN PERCENT AUTO 0 % (0-1); LYMPHOCYTES ABSOLUTE AUTO 1.70 K/mm3 (0.84-5.20); LYMPHOCYTES PERCENT AUTO 30 % (21-46); MONOCYTES ABSOLUTE AUTO 0.42 K/mm3 (0.16-1.47); MONOCYTES PERCENT AUTO 7 % (4-13); Mean Corpuscular HGB Conc 35.3 g/dL (31.5-36.5); Mean Corpuscular Volume 100 fL (80-100); NEUTROPHILS ABSOLUTE AUTO 3.09 K/mm3 (1.96-9.15); NEUTROPHILS PERCENT AUTO 55 % (41-73); NRBC ABSOLUTE 0.00 K/mm3 (0.00-0.02); NRBC Auto 0.0 /100 WBC (0.0-0.2); Platelet Count 61 K/mm3 (150-400); RDW Coefficient Variation 14.6 % (11.7-14.2); RDW Standard Deviation 52.7 fL (35.1-46.3)
[2025-01-02 05:40] LABS: Alanine Aminotransfer (ALT/SGP 53.0 U/L (12-78); Albumin, Blood 3.0 g/dL (3.4-5.0); Albumin/Globulin Ratio 0.9 (0.8-1.8); Anion Gap 8.0 mmol/L (3-11); Aspartate Aminotrans (AST/SGOT 73.0 U/L (12-37); Bilirubin, Total 2.7 mg/dL (0.1-1.0); Blood Urea Nitrogen 22.0 mg/dL (8-24); CO2, Blood 21.0 mmol/L (21-32); Calcium, Blood 10.1 mg/dL (8.5-10.1); Chloride, Blood 109.0 mmol/L (98-108); Creatinine, Blood 0.84 mg/dL (0.40-1.00); Globulin, Blood 3.2 g/dL (2.2-4.0); Glucose, Blood 102.0 mg/dL (70-99); Potassium, Blood 3.9 mmol/L (3.5-5.5); Sodium, Blood 134.0 mmol/L (136-145); Total Protein, Blood 6.2 g/dL (6.4-8.2)
--- NOTE | 2025-01-02 06:58 | NUR ---
SHIFT SUMMARY AT START OF SHIFT, PT RESTING IN CHAIR. CAME TO VISIT AND TELL HER GOOD NIGHT. PASSED ON TO THIS RN THAT PT HAS A FRIEND, ANDERS, WHO MAY COME TO VISIT AND HAS BEEN KNOWN TO SNEAK HER ALCOHOL. [employer] PERFORMER NOTIFIED. PT HAVING PARANOID HALLUCINATIONS. KEEPS THINKING THERE IS SOMEONE ELSE IN THE ROOM WHO IS TAKING UP HER SPACE. PT REORIENTED TO SURROUNDINGS. PT STATED SHE WAS SCARED OF HER BED, BUT GOT IN BED AFTER USING BATHROOM. PT HAD MINIMAL BM OUTPUT THIS SHIFT. SHE IS CURRENTLY LYING IN BED RESTING COMFORTABLY. PT WOKE AFTER AM MED PASS STATING SHE NEEDED TO USE THE BATHROOM. PT HAS BEEN COOPERATIVE WITH HER CARE THIS SHIFT.
[2025-01-02 08:13] VITALS: BP 99/76
[2025-01-02] MEDS ORDERED: Lactulose 200 GM/300 ML Enema 300ML BTL PR ONE (14:05)
--- NOTE | 2025-01-02 17:11 | NUR ---
SHIFT SUMMARY: PATIENT ONLY HAD X1 SMALL BM THIS AFTERNOON AT 1400. ORAL AND RECTAL LACTOLOSE GIVEN. PATIENT HAD LARGE LOOSE/LIQUID STOOL AFTER ENEMA WAS INSTILLED. NO BLOOD NOTED TODAY DURING BMS. PATIENT DOES HAVE EXTERNAL HEMORRHOIDS UPON EXAMINATION. BUDDY STATES HE WILL CONSULT THE PATIENT TOMORROW 01/03/25. SHE IS IN BED, ALERT, [facility] AT BEDSIDE, CALL LIGHT WITHIN REACH, BED ALARM ON, NO SIGNS OR SYMPTOMS OF DISTRESS, PLAN OF CARE ONGOING.
[2025-01-02 20:19] VITALS: BP 121/47
[2025-01-02 20:22] VITALS: BP 125/65
[2025-01-03 05:37] VITALS: BP 100/70
[2025-01-03 05:40] LABS: BASOPHILS ABSOLUTE AUTO 0.05 K/mm3 (0.00-0.23); BASOPHILS PERCENT AUTO 1 % (0-2); EOSINOPHILS ABSOLUTE AUTO 0.31 K/mm3 (0.00-0.68); EOSINOPHILS PERCENT AUTO 6 % (0-6); Hematocrit 25.7 % (33.0-51.0); Hemoglobin 9.1 g/dL (11.5-16.0); IMMATURE GRAN ABSOLUTE AUTO 0.02 K/mm3 (0.00-0.10); IMMATURE GRAN PERCENT AUTO 0 % (0-1); LYMPHOCYTES ABSOLUTE AUTO 1.31 K/mm3 (0.84-5.20); LYMPHOCYTES PERCENT AUTO 24 % (21-46); MONOCYTES ABSOLUTE AUTO 0.44 K/mm3 (0.16-1.47); MONOCYTES PERCENT AUTO 8 % (4-13); Mean Corpuscular HGB Conc 35.4 g/dL (31.5-36.5); Mean Corpuscular Volume 100 fL (80-100); NEUTROPHILS ABSOLUTE AUTO 3.23 K/mm3 (1.96-9.15); NEUTROPHILS PERCENT AUTO 60 % (41-73); NRBC ABSOLUTE 0.00 K/mm3 (0.00-0.02); NRBC Auto 0.0 /100 WBC (0.0-0.2); Platelet Count 53 K/mm3 (150-400); RDW Coefficient Variation 14.7 % (11.7-14.2); RDW Standard Deviation 52.3 fL (35.1-46.3)
[2025-01-03 06:07] LABS: Alanine Aminotransfer (ALT/SGP 58.0 U/L (12-78); Albumin, Blood 2.9 g/dL (3.4-5.0); Albumin/Globulin Ratio 1.0 (0.8-1.8); Anion Gap 9.0 mmol/L (3-11); Aspartate Aminotrans (AST/SGOT 71.0 U/L (12-37); Bilirubin, Total 2.5 mg/dL (0.1-1.0); Blood Urea Nitrogen 19.0 mg/dL (8-24); CO2, Blood 21.0 mmol/L (21-32); Calcium, Blood 9.9 mg/dL (8.5-10.1); Chloride, Blood 108.0 mmol/L (98-108); Creatinine, Blood 0.81 mg/dL (0.40-1.00); Globulin, Blood 3.0 g/dL (2.2-4.0); Glucose, Blood 110.0 mg/dL (70-99); Potassium, Blood 3.9 mmol/L (3.5-5.5); Sodium, Blood 134.0 mmol/L (136-145); Total Protein, Blood 5.9 g/dL (6.4-8.2)
[2025-01-03 07:15] VITALS: BP 131/54
--- NOTE | 2025-01-03 07:42 | NUR ---
SHIFT SUMMARY PT PLEASANT AND COOPERATIVE WITH CARE. STILL HALLUCINATING THAT THERE ARE OTHER PEOPLE IN THE ROOM, HOWEVER ORIENTED TO WHERE SHE IS. SHE HAD ONE SMALL BM DURING THE NIGHT, THEN JUST HAD BRIGHT RED BLOOD. SHE HAS BEEN WEAK ON HER FEET. BED ALARM ON FOR SAFETY, CALL LIGHT IN REACH.
[2025-01-03] MEDS ORDERED: Lactulose 200 GM/300 ML Enema 300ML BTL PR ONE (12:40)
--- NOTE | 2025-01-03 18:00 | NUR ---
A&OX4 THROUGHOUT SHIFT, BUT OCCASIONALLY HALLUCINATES. PT HAS DENIED AFTERNOON MEDICATIONS, BUT THEN LATER AGREED TO TAKE THEM. PT OTHERWISE COOPERATIVE WITH CARE. PT HAD ONE BM THIS SHIFT AFTER ENEMA. FREDIS RED BLOOD PRESENT. O2 SATS >90% ON ROOM AIR. BREATHING EQUAL AND NONLABORED. DENIES CHEST PAIN AND/OR PRESSURE. LYING IN BED AT THIS TIME. BED LOCKED AND IN THE LOWEST POSITION. CALL LT WITHIN REACH.
[2025-01-03 20:02] VITALS: BP 148/59
[2025-01-04 04:43] VITALS: BP 129/67
--- NOTE | 2025-01-04 05:41 | NUR ---
PATIENT ALERT AND ORIENTED TO SELFAND , VERY CONFUSED AND HALLUCINATING VISUALLY AND AUDITORY, IMPULSIVE OOB TO BATHROOM, BM X2 TONIGHT, HARD TI RE DIRECT AT TIMES, PATIENT PULLED IV OUT, BED ALARM ON, 1PA STAND BY FOR AMBULATION IN ROOM, PATIENT HAS BEEN CONTINENT, CALL LIGHT WITH IN REACH, WILL RELAY TO AM RN
[2025-01-04 07:47] VITALS: BP 135/55
[2025-01-04 09:07] LABS: Anion Gap 11.0 mmol/L (3-11); Blood Urea Nitrogen 16.0 mg/dL (8-24); CO2, Blood 20.0 mmol/L (21-32); Calcium, Blood 9.9 mg/dL (8.5-10.1); Chloride, Blood 108.0 mmol/L (98-108); Creatinine, Blood 0.78 mg/dL (0.40-1.00); Glucose, Blood 104.0 mg/dL (70-99); Potassium, Blood 3.8 mmol/L (3.5-5.5); Sodium, Blood 135.0 mmol/L (136-145)
[2025-01-04 09:08] LABS: BASOPHILS ABSOLUTE AUTO 0.05 K/mm3 (0.00-0.23); BASOPHILS PERCENT AUTO 1 % (0-2); EOSINOPHILS ABSOLUTE AUTO 0.34 K/mm3 (0.00-0.68); EOSINOPHILS PERCENT AUTO 7 % (0-6); Hematocrit 25.1 % (33.0-51.0); Hemoglobin 8.9 g/dL (11.5-16.0); IMMATURE GRAN ABSOLUTE AUTO 0.01 K/mm3 (0.00-0.10); IMMATURE GRAN PERCENT AUTO 0 % (0-1); LYMPHOCYTES ABSOLUTE AUTO 1.28 K/mm3 (0.84-5.20); LYMPHOCYTES PERCENT AUTO 25 % (21-46); MONOCYTES ABSOLUTE AUTO 0.39 K/mm3 (0.16-1.47); MONOCYTES PERCENT AUTO 8 % (4-13); Mean Corpuscular HGB Conc 35.5 g/dL (31.5-36.5); Mean Corpuscular Volume 100 fL (80-100); NEUTROPHILS ABSOLUTE AUTO 3.01 K/mm3 (1.96-9.15); NEUTROPHILS PERCENT AUTO 59 % (41-73); NRBC ABSOLUTE 0.00 K/mm3 (0.00-0.02); NRBC Auto 0.0 /100 WBC (0.0-0.2); Platelet Count 59 K/mm3 (150-400); RDW Coefficient Variation 15.1 % (11.7-14.2); RDW Standard Deviation 53.2 fL (35.1-46.3)
--- NOTE | 2025-01-04 13:28 | NUR ---
DISCHARGE SUMMARY HAD CONVERSATION WITH PT AND AT BEDSIDE REGARDING DR'S RECOMMENDATION FOR LACTULOSE ENEMA. PT REFUSING, AND ANSWERING ORIENTATION QUESTIONS APPROPRIATELY. RISKS AND BENEFITS DISCUSSED, PT REFUSING TO STAY IN HOSPITAL ANY LONGER. IV WAS REMOVED BY PT PRIOR TO THIS RN'S SHIFT. PT IS SITTING UPRIGHT IN BED CONVERSING AND EATING LUNCH, NOON DOSE OF LACTULOSE GIVEN PRIOR TO DISCHARGE. PT TRANSPORTED BY THIS RN VIA WHEELCHAIR TO [facility], CAR FOR RETURN HOME WITH PERSONAL BELONGINGS. PROVIDER AWARE. AMA FORM SIGNED BY THIS RN AND PATIENT.
== END 2025-01-04 13:08 | disposition left against medical advice (07) | DRG 433 ==
LOC: ER 21:27 → MEDS 21:28
PROVIDERS: Emergency Medicine; Family Medicine; Internal Medicine; Student in an Organized Health Care Education/Training Program; ADMIT Student in an Organized Health Care Education/Training Program
DX: K70.30 Alcoholic cirrhosis of liver without ascites (principal); E87.1 Hypo-osmolality and hyponatremia; K76.6 Portal hypertension; N17.9 Acute kidney failure, unspecified; K92.2 Gastrointestinal hemorrhage, unspecified; K76.82 Hepatic encephalopathy; E78.5 Hyperlipidemia, unspecified; E11.22 Type 2 diabetes mellitus with diabetic chronic kidney disease; N18.9 Chronic kidney disease, unspecified; D63.1 Anemia in chronic kidney disease; E66.01 Morbid (severe) obesity due to excess calories; E87.6 Hypokalemia; E83.42 Hypomagnesemia; I44.0 Atrioventricular block, first degree; R74.01 Elevation of levels of liver transaminase levels; J45.909 Unspecified asthma, uncomplicated; I12.9 Hypertensive chronic kidney disease with stage 1 through stage 4 chronic kidney disease, or unspecified chronic kidney disease; G25.81 Restless legs syndrome; M54.9 Dorsalgia, unspecified; F32.A Depression, unspecified; D69.6 Thrombocytopenia, unspecified; E80.6 Other disorders of bilirubin metabolism; R79.89 Other specified abnormal findings of blood chemistry; F51.04 Psychophysiologic insomnia; I08.0 Rheumatic disorders of both mitral and aortic valves; Z53.29 Procedure and treatment not carried out because of patient's decision for other reasons; Z88.2 Allergy status to sulfonamides; Z88.8 Allergy status to other drugs, medicaments and biological substances; Z87.19 Personal history of other diseases of the digestive system; Z79.899 Other long term (current) drug therapy; Z79.51 Long term (current) use of inhaled steroids; Z87.891 Personal history of nicotine dependence; Z90.49 Acquired absence of other specified parts of digestive tract; Z90.710 Acquired absence of both cervix and uterus; Z98.890 Other specified postprocedural states; Z68.39 Body mass index [BMI] 39.0-39.9, adult
CPT/HCPCS: 36415; 80048; 80053; 80076; 80320; 81003; 82140; 82803; 82947; 83605; 85014; 85018; 85025; 93005; 93010; 94760; 99285-25; A9270; G0378; J7120

== ENCOUNTER → 2025-01-25 | Outpatient (CLI) | payer MEDICARE ==
[~2025-01-25] MED LIST changes: +B-121000 MC3 PO
[2025-01-25 14:15] LABS: BASOPHILS ABSOLUTE AUTO 0.08 K/mm3 (0.00-0.23); BASOPHILS PERCENT AUTO 2 % (0-2); EOSINOPHILS ABSOLUTE AUTO 0.22 K/mm3 (0.00-0.68); EOSINOPHILS PERCENT AUTO 4 % (0-6); Hematocrit 25.3 % (33.0-51.0); Hemoglobin 8.4 g/dL (11.5-16.0); IMMATURE GRAN ABSOLUTE AUTO 0.02 K/mm3 (0.00-0.10); IMMATURE GRAN PERCENT AUTO 0 % (0-1); LYMPHOCYTES ABSOLUTE AUTO 1.58 K/mm3 (0.84-5.20); LYMPHOCYTES PERCENT AUTO 30 % (21-46); MONOCYTES ABSOLUTE AUTO 0.40 K/mm3 (0.16-1.47); MONOCYTES PERCENT AUTO 8 % (4-13); Mean Corpuscular HGB Conc 33.2 g/dL (31.5-36.5); Mean Corpuscular Volume 109 fL (80-100); NEUTROPHILS ABSOLUTE AUTO 3.00 K/mm3 (1.96-9.15); NEUTROPHILS PERCENT AUTO 57 % (41-73); NRBC ABSOLUTE 0.00 K/mm3 (0.00-0.02); NRBC Auto 0.0 /100 WBC (0.0-0.2); Platelet Count 84 K/mm3 (150-400); RDW Coefficient Variation 18.0 % (11.7-14.2); RDW Standard Deviation 71.3 fL (35.1-46.3)
[2025-01-25 14:23] LABS: Alanine Aminotransfer (ALT/SGP 39.0 U/L (12-78); Albumin, Blood 2.7 g/dL (3.4-5.0); Albumin/Globulin Ratio 1.0 (0.8-1.8); Anion Gap 8.0 mmol/L (3-11); Aspartate Aminotrans (AST/SGOT 55.0 U/L (12-37); Bilirubin, Total 2.0 mg/dL (0.1-1.0); Blood Urea Nitrogen 8.0 mg/dL (8-24); CO2, Blood 21.0 mmol/L (21-32); Calcium, Blood 8.7 mg/dL (8.5-10.1); Chloride, Blood 112.0 mmol/L (98-108); Creatinine, Blood 0.71 mg/dL (0.40-1.00); Globulin, Blood 2.7 g/dL (2.2-4.0); Glucose, Blood 109.0 mg/dL (70-99); Potassium, Blood 3.4 mmol/L (3.5-5.5); Sodium, Blood 138.0 mmol/L (136-145); Total Protein, Blood 5.4 g/dL (6.4-8.2)
== END ==
LOC: LAB SHORT 13:53 → LAB 13:53
PROVIDERS: Physician Assistant
DX: R60.0 Localized edema (principal)
CPT/HCPCS: 80053; 85025